=== PATIENT | male | born 1940 ===

== ENCOUNTER 2016-10-05 10:29 | Observation (INO) | payer MEDICARE, OTHER ==
[2016-10-05 10:37] VITALS: BMI 27.1
[2016-10-05 11:32] LABS: BASO # 0.1 K/uL (0.0-0.2); BASO % 0.8 % (0.0-2.0); EOS # 0.2 K/uL (0.0-0.7); HEMATOCRIT 41.8 % (35.0-51.0); LYMPH # 1.6 K/uL (1.0-4.3); LYMPH % 22.9 % (20.0-40.0); MEAN CELL VOLUME 93.3 fL (80.0-94.0); MEAN CORPUSCULAR HGB CONC 33.2 g/dL (33.0-37.0); MEAN PLATELET VOLUME 8.4 fL (7.2-11.7); MONO # 0.4 K/uL (0.0-0.8); MONO % 5.7 % (0.0-10.0); RED CELL DISTRIBUTION WIDTH 14.1 % (11.5-14.5); WHITE BLOOD COUNT 7.1 K/uL (4.8-10.8)
--- NOTE | 2016-10-05 11:33 | RAD ---
HISTORY: Shortness of breath COMPARISON: 03/03/2016 TECHNIQUE: Chest PA and lateral FINDINGS: LUNGS: There is mild pulmonary hyperinflation and peribronchial thickening. There are chronic interstitial markings in both lungs. No lobar pneumonia. PLEURA: No significant pleural effusion identified. No pneumothorax apparent. CARDIOVASCULAR: Normal. OSSEOUS STRUCTURES: No significant abnormalities. VISUALIZED UPPER ABDOMEN: Normal. OTHER FINDINGS: None. IMPRESSION: No active pulmonary disease. COPD.
[2016-10-05 11:40] LABS: CHLORIDE 101 mmol/L (98-107); POTASSIUM 4.2 mmol/L (3.6-5.2); SODIUM 138 mmol/L (132-148)
[2016-10-05 11:42] LABS: AST/SGOT 20 U/L (17-59); BILIRUBIN,TOTAL 0.5 mg/dL (0.2-1.3); CARBON DIOXIDE 26 mmol/L (22-30); GFR AFRICAN-AMERICAN > 60
[2016-10-05 11:43] LABS: ALB/GLOB RATIO 1.4 (1.0-2.1); ALKALINE PHOSPHATASE 70 U/L (38-126); ALT/SGPT 16 U/L (21-72); BLOOD UREA NITROGEN 15 mg/dL (9-20); CALCIUM 8.7 mg/dl (8.6-10.4); GLUCOSE,RANDOM 211 mg/dL (75-110); TOTAL PROTEIN 6.7 g/dL (6.3-8.3)
[2016-10-05 11:45] LABS: RBC URINE 11 /hpf (0-3); URINE BILIRUBIN NEGATIVE (NEGATIVE); URINE BLOOD 1+ (NEGATIVE); URINE COLOR Yellow (YELLOW); URINE GLUCOSE (UA) NORMAL (Normal); URINE KETONE NEGATIVE (NEGATIVE); URINE LEUKOCYTE ESTERASE NEG Leu/uL (Negative); URINE PROTEIN NEGATIVE (NEGATIVE); URINE UROBILINOGEN NORMAL mg/dL (0.2-1.0); WBC URINE < 1 /hpf (0-5)
--- NOTE | 2016-10-05 11:55 | C.PDOC ---
History Of Present Illness 76-year-old male, PMHx includes Anemia, Anxiety, Arthritis (B/L KNEE L>R), Asthma, CAD, Cardiac Aneurysm, Diabetes (NIDDM), Gastritis, Hypertension, Hyperthyroidism, Kidney Stones, and Pancreatitis, presents to the emergency department with complaints of chest pain, radiating to left arm that started three weeks ago. Patient notes associated pain in back, and legs. Patient denies shortness of breath, nausea/vomiting, fevers or chills. No other complaints at this time. Time Seen by Provider: 10/05/16 10:39 Chief Complaint (Nursing): Chest Pain History Per: Patient History/Exam Limitations: no limitations Onset/Duration Of Symptoms: Days Current Symptoms Are (Timing): Still Present Severity: Moderate Past Medical History Reviewed: Historical Data, Nursing Documentation, Vital Signs Vital Signs: Last Vital Signs Temp 98.1 F 10/05/16 10:39 Pulse 92 H 10/05/16 10:39 Resp 18 10/05/16 10:39 BP 135/81 10/05/16 10:39 Pulse Ox 97 10/05/16 13:09 - Medical History PMH: Anemia, Anxiety, Arthritis (B/L KNEE L>R), Asthma, CAD, Cardiac Aneurysm (' 'LOWER ABDOMEN''), Diabetes (NIDDM), Gastritis, HTN, Hyperthyroidism, Kidney Stones, Pancreatitis Surgical History: - [facility] Procedures BYPASS L FEM ART TO L FEMOR A WITH AUTOL VN, OPEN APPROACH (03/14/16) CATARAC PHACOEMULS/ASPIR (07/23/14) CONTINUOUS INVASIVE MECHANICAL VENTILATION <96 CONSEC HRS (10/14/14) CONTRAST AORTOGRAM (09/16/14) CONTRAST ARTERIOGRAM-LEG (09/16/14) CORONAR ARTERIOGR-2 CATH (01/04/13) ENDOVASCULAR IMPLANTATION OF OTHER GRAFT IN ABDOMINAL AORTA (10/14/14) EXCISION OF LEFT FEMORAL VEIN, OPEN APPROACH (03/14/16) HEMORRHAGE CONTROL NOS (10/14/14) INSERT ENDOTRACHEAL TUBE (10/14/14) INSERT LENS AT CATAR EXT (07/23/14) LEFT HEART CARDIAC CATH (01/04/13) LT HEART ANGIOCARDIOGRAM (01/04/13) OTHER ENDOVASCULAR PROCEDURES ON OTHER VESSELS (10/30/14) PACKED CELL TRANSFUSION (10/30/14) PROCEDURE ON VESSEL BIFURCATION (10/14/14) REMOVE HEAD/NECK DEV NEC (10/14/14) TRANSFUSE NONAUT RED BLOOD CELLS IN PERIPH VEIN, PERC (03/14/16) VASC SHUNT & BYPASS NEC (10/30/14) VENOUS CATHETERIZATION NEC (10/14/14) Family History: States: No Known Family Hx - Social History Hx Tobacco Use: No (quit one year ago. Formerly 1/2 ppd for 20 years. ) Hx Alcohol Use: No Hx Substance Use: No - Immunization History Hx Tetanus Toxoid Vaccination: Yes Hx Influenza Vaccination: Yes Hx Pneumococcal Vaccination: Yes Review Of Systems Except As Marked, All Systems Reviewed And Found Negative. Constitutional: Negative for: Fever, Chills Cardiovascular: Positive for: Chest Pain. Negative for: Palpitations Respiratory: Negative for: Shortness of Breath Gastrointestinal: Negative for: Nausea, Vomiting Musculoskeletal: Positive for: Arm Pain, Leg Pain Skin: Negative for: Rash Neurological: Negative for: Weakness, Numbness, Headache, Dizziness Physical Exam - Physical Exam Appears: Non-toxic, No Acute Distress Skin: Warm, Dry, No Rash Head: Atraumatic, Normacephalic Eye(s): bilateral: Normal Inspection, PERRL Nose: Normal Oral Mucosa: Moist Lips: Normal Appearing Neck: Normal ROM Cardiovascular: Rhythm Regular, No Murmur Respiratory: Normal Breath Sounds, No Accessory Muscle Use Gastrointestinal/Abdominal: Soft, No Tenderness Extremity: Normal ROM Neurological/Psych: Oriented x3, Normal Speech ED Course And Treatment - Laboratory Results Result Diagrams: 10/05/16 11:29 10/05/16 11:29 Lab Interpretation: No Acute Changes ECG: Interpreted By Ne ECG Rhythm: Sinus Rhythm, Nonspecific Changes ECG Interpretation: No Acute Changes Rate From EC O2 Sat by Pulse Oximetry: 97 Pulse Ox Interpretation: Normal - Radiology CXR: Interpreted by Ne CXR Interpretation: Yes: No Acute Disease Reassessment Condition: Unchanged - Physician Consult Information Physician Contacted: Bryan Hilario Outcome Of Conversation: admit Disposition Discussed With : Bryan Hilario Doctor Will See Patient In The: Hospital Counseled Patient/Family Regarding: Studies Performed, Diagnosis - Disposition Disposition: HOSPITALIZED Disposition Time: 13:10 Condition: STABLE - POA Present On Arrival: None - Clinical Impression Clinical Impression: Chest pain - Scribe Statement The provider has reviewed the documentation as recorded by the Scribglory Petersen All medical record entries made by the Baudilio were at my direction and personally dictated by me. I have reviewed the chart and agree that the record accurately reflects my personal performance of the history, physical exam, medical decision making, and the department course for this patient. I have also personally directed, reviewed, and agree with the discharge instructions and disposition. Decision To Admit - Pt Status Changed To: Hospital Disposition Of: Observation - . Bed Request Type: Telemetry Admitting Physician: Bryan Hilario Patient Diagnosis: Chest pain
--- NOTE | 2016-10-05 14:32 | CP.PCM.HP ---
<Jessica Omer - Last Filed: 10/05/16 14:41> History of Present Illness - History of Present Illness History of Present Illness: Chief complaint: "Chest pain" History of present illness: Patient is a 76 y/o male w/ past medical history of CAD, AAA s/p graft insertion, Hypertension, Diabetes Mellitus type II, PVD, and Nephrolithiasis who presents to ED with complaints of new-onset chest pain. Patient reports pain began approximately 2 weeks ago and is described as a "squeezing, pressure- like sensation" to left chest that radiates to his left arm. Patient states he experiences the pain intermittently at rest or with activity and there are no specific provoking factors. The chest pain is not currently present and last episode was two days ago. The patient reports night sweats, palpitations, and leg edema as associated symptoms. Patient states he came to the ED mainly due to back pain which has become worse this year. He states he is limited in distance he can walk/activities due to back and chronic leg pain. In addition, the patient reports right upper extremity numbness and tingling x 4 months. The patient denies any recent trauma or MVA. It is persistent in nature. He states he has difficulty activities such as shaving because of the decreased sensation. The patient reports nausea, dizziness, cough productive of white sputum, occasional shortness of breath, bloating, occasional diarrhea, and urinary frequency. The patient denies fever/chills, vomiting, loss of consciousness, headache, tinnitus, hemoptysis, rashes, abdominal pain, constipation, hematochezia, urgency, dysuria, and hematuria. PMD: see HPI Medications: Metformin 500 mg po BID Cilostazol 100 mg po daily Lyrica 75 mg po daily Atorvastatin 40 mg po daily Amlodipine 20 mg po daily Glipizide 5 mg po BID Clopidogrel 75 mg po daily Dutasteride 0.5 mg po daily Allergies: penicillins, shellfish Family History: Father of MA, Mother- DM Surgical History: Elective femoral-popliteal bypass with saphenous vein graft ( 03/14/16), external iliac-popliteal bypass, right external iliac artery thromboembolectomy, AAA graft insertion, and prostate surgery Social history: The patient lives alone in [place]. He has smoked a half pack of cigarettes/day for >30 years. He denies any history of alcohol consumption or recreational drug use. Present on Admission - Present on Admission Any Indicators Present on Admission: No History of DVT/PE: No History of Uncontrolled Diabetes: Yes Urinary Catheter: No Decubitus Ulcer Present: No Review of Systems - Constitutional Constitutional: Fatigue, Night Sweats. absent: Chills, Excessive Sweating, Fever, Headache - EENT Eyes: absent: Change in Vision Ears: absent: Ear Discharge, Tinnitus Nose/Mouth/Throat: Sore Throat - Cardiovascular Cardiovascular: Chest Pain, Dyspnea, Pain Radiating to Arm/Neck/Jaw, Leg Edema, Palpitations. absent: Diaphoresis - Respiratory Respiratory: Cough, Dyspnea, Excessive Mucous Production - Gastrointestinal Gastrointestinal: Bloating, Diarrhea, Nausea. absent: Abdominal Pain, Constipation, Hematemesis, Hematochezia, Vomiting - Genitourinary Genitourinary: Urinary Frequency. absent: Dysuria, Hematuria, Urinary Urgency - Musculoskeletal Musculoskeletal: Back Pain, Limited Range of Motion, Numbness, Radiating Pain into Limb, Tingling - Integumentary Integumentary: absent: Changing Lesions, New Lesions, Rash - Neurological Neurological: Dizziness, Numbness, Paresthesias, Radicular Pain, Tingling. absent: Headaches Past Patient History - Infectious Disease Hx of Infectious Diseases: None - Tetanus Immunizations Tetanus Immunization: Unknown - Past Medical History & Family History Past Medical History?: Yes - Past Social History Smoking Status: Light Smoker < 10 Cigarettes Daily - CARDIAC Hx Hypertension: Yes - PULMONARY Hx Asthma: Yes - NEUROLOGICAL Hx Neurological Disorder: No - HEENT Hx HEENT Problems: Yes Hx Cataracts: Yes (b/l cataract surgery) - RENAL Hx Kidney Stones: Yes - ENDOCRINE/METABOLIC Hx Hyperthyroidism: Yes - HEMATOLOGICAL/ONCOLOGICAL Hx Anemia: Yes - MUSCULOSKELETAL/RHEUMATOLOGICAL Hx Arthritis: Yes (B/L KNEE L>R) - GASTROINTESTINAL Hx Gastritis: Yes Hx Pancreatitis: Yes - GENITOURINARY/GYNECOLOGICAL Hx Genitourinary Disorders: Yes Hx Prostate Problems: Yes (BPH) - PSYCHIATRIC Hx Anxiety: Yes Hx Substance Use: No - SURGICAL HISTORY Hx Surgeries: Yes Hx Abdominal Aortic Aneurysm Repair: Yes (STENTING) Hx Cataract Extraction: Yes (bilateral) Hx Cardiac Catheterization: Yes (stents) Hx Eye Surgery: Yes Hx Herniorrhaphy: Yes Other/Comment: back sx x3 - ANESTHESIA Hx Anesthesia: Yes Hx Anesthesia Reactions: No Hx Malignant Hyperthermia: No Meds Allergies/Adverse Reactions: Allergies Allergy/AdvReac Type Severity Reaction Status Date / Time Penicillins Allergy Verified 10/05/16 10:59 Physical Exam - Constitutional Appears: Non-toxic, No Acute Distress, Agitated - Head Exam Head Exam: ATRAUMATIC, NORMOCEPHALIC - Eye Exam Eye Exam: EOMI, Normal appearance, PERRL - ENT Exam ENT Exam: Mucous Membranes Dry - Neck Exam Neck exam: Positive for: Full Rom, Normal Inspection - Respiratory Exam Respiratory Exam: Chest Wall Tenderness, Wheezes, NORMAL BREATHING PATTERN Additional comments: expiratory wheezing on auscultation - Cardiovascular Exam Cardiovascular Exam: RRR, +S1, +S2. absent: Tachycardia, Diastolic murmur, Gallop, Rubs, Systolic Murmur Additional comments: no carotid bruit - GI/Abdominal Exam GI & Abdominal Exam: Normal Bowel Sounds, Soft. absent: Distended, Firm, Tenderness - Extremities Exam Extremities exam: Positive for: pedal pulses present (Diminished right pedal pulses). Negative for: pedal edema, tenderness Additional comments: surgical scars present to bilateral LE no pain to palpation pedal pulse slightly diminished on right - Back Exam Back exam: paraspinal tenderness, tenderness, vertebral tenderness Additional comments: thoracolumbar tenderness to palpation pain elicited on straight leg test - Neurological Exam Neurological exam: Alert, CN II-XII Intact, Oriented x3 - Psychiatric Exam Psychiatric exam: Agitated - Skin Skin Exam: Dry, Intact, Warm Results - Vital Signs Recent Vital Signs: Last Vital Signs Temp 98.1 F 10/05/16 10:39 Pulse 92 H 10/05/16 10:39 Resp 18 10/05/16 10:39 BP 135/81 10/05/16 10:39 Pulse Ox 97 10/05/16 13:39 - Labs Result Diagrams: 10/05/16 11:29 10/05/16 11:29 Assessment & Plan - Assessment and Plan (Free Text) Assessment: 1. Chest Pain Troponin I <0.0120 EKG: CXR: There is mild pulmonary hyperinflation and peribronchial thickening. There are chronic interstitial markings in both lungs. No lobar pneumonia. ( see full report) f/u ROMIs, serial EKGs Echocardiogram (10/30/14): Ischemic cardiomyopathy and LVEF 30% (see full report) . Consult cardiology, Dr. Rodriguez, help appreciated. Echocardiogram ordered. Lipid panel, TSH, free T4 Admitting to telemetry floor 2. History of CAD AAA s/p stent graft insertion Continue home medications: Clopidigrel 75 mg po daily Atorvastatin 40 mg po daily NF - substitute Crestor Cardiology consulted as above 3. History of PVD Continue home medication: Cilostazol 100 mg po daily 4. Hypertension Normotensive Continue home medications: Amlodipine 10 mg po daily 5. Diabetes Mellitus type II Glucose 211 Accuchecks Hold home medications Metformin and Glipizide RISS f/u hemoglobin a1c Monitor 6. Right Upper Extremity Numbness/Tingling Continue home medication Lyrica 75 mg po BID 7. Thoracolumbar Back Pain Lidoderm Patch TD daily Tylenol 650 mg po q6h prn pain 8. BPH Continue home medication Dutasteride 0.5 mg po BID 9. Prophylaxis Heparin 5000 units SC Q12 Protonix 20 mg po daily SCDs Heart Healthy Diet PT/OT - Date & Time Date: 10/05/16 Time: 15:24 <Bryan Hilario - Last Filed: 10/05/16 16:52> Results - Vital Signs Recent Vital Signs: Last Vital Signs Temp 97.9 F 10/05/16 15:38 Pulse 78 10/05/16 15:38 Resp 20 10/05/16 15:38 BP 162/87 H 10/05/16 15:38 Pulse Ox 96 10/05/16 15:38 - Labs Result Diagrams: 10/05/16 11:29 10/05/16 11:29 Labs: Laboratory Results - last 24 hr 10/05/16 15:35 POC Glucose (mg/dL) 146 H Attending/Attestation - Attestation I have personally seen and examined this patient.: Yes I have fully participated in the care of the patient.: Yes I have reviewed all pertinent clinical information: Yes Notes (Text): 10/05/16 16:51 Patient was seen and examined at bedside with the resident We will admit the patient to rule out acute coronary syndrome We will also request a cardiology evaluation and will follow-up recommendations I discussed the plan of care with the resident and I agree with the above history and physical and assessment/plan by the resident.
[2016-10-05 15:39] VITALS: RESP 20
[2016-10-05] MEDS: (Novolog) Insulin Aspart, Recombinant 100 u/ml 10 ml vial SC SCH (17:45)
[2016-10-06 06:16] LABS: BASO % 0.4 % (0.0-2.0); EOS # 0.2 K/uL (0.0-0.7); EOS % 2.8 % (0.0-4.0); HEMATOCRIT 43.2 % (35.0-51.0); LYMPH # 1.7 K/uL (1.0-4.3); LYMPH % 24.6 % (20.0-40.0); MEAN CORPUSCULAR HEMOGLOBIN 31.2 pg (27.0-31.0); MEAN CORPUSCULAR HGB CONC 33.5 g/dL (33.0-37.0); MEAN PLATELET VOLUME 8.2 fL (7.2-11.7); MONO # 0.4 K/uL (0.0-0.8); MONO % 5.3 % (0.0-10.0); NRBC % 0.1 % (0.0-2.0); RED CELL DISTRIBUTION WIDTH 14.2 % (11.5-14.5); WHITE BLOOD COUNT 6.9 K/uL (4.8-10.8)
[2016-10-06 06:21] LABS: CHLORIDE 103 mmol/L (98-107)
[2016-10-06 06:22] LABS: POTASSIUM 4.3 mmol/L (3.6-5.2); SODIUM 137 mmol/L (132-148)
[2016-10-06 06:24] LABS: ALB/GLOB RATIO 1.3 (1.0-2.1); AST/SGOT 20 U/L (17-59); BILIRUBIN,TOTAL 0.6 mg/dL (0.2-1.3); CARBON DIOXIDE 26 mmol/L (22-30); CHOLESTEROL 176 mg/dL (0-199); GFR AFRICAN-AMERICAN > 60; TOTAL PROTEIN 6.5 g/dL (6.3-8.3)
[2016-10-06 06:25] LABS: ALKALINE PHOSPHATASE 69 U/L (38-126); ALT/SGPT 18 U/L (21-72); BLOOD UREA NITROGEN 14 mg/dL (9-20); CALCIUM 9.1 mg/dl (8.6-10.4); GLUCOSE,RANDOM 153 mg/dL (75-110); MAGNESIUM 1.7 mg/dL (1.6-2.3)
[2016-10-06 06:53] LABS: THYROID STIMULATING HORMONE 0.35 mIU/L (0.46-4.68)
--- NOTE | 2016-10-06 06:56 | CP.PCM.PN ---
<OrlinMohitricardo - Last Filed: 10/06/16 11:38> Subjective - Date & Time of Evaluation Date of Evaluation: 10/06/16 Time of Evaluation: 07:12 - Subjective Subjective: PGY 1 Medicine Note- Dr. Hilario's service Pt seen and examined in no acute distress. Patient states that he does not have any chest pain at the moment. He states that his real reason for coming in was due to the lower back pain as well as right sided shoulder pain that he has been experiencing. Patient's pain is exacerbated with movement of his arm and palpation of affected areas. Patient admits to paresthesias in his right UE only. Patient denies chest pain, palpitations, dyspnea on exertion, nausea, vomiting, diarrhea , constipation at this time. Objective - Vital Signs/Intake and Output Vital Signs (last 24 hours): Temp Pulse Resp BP Pulse Ox 98.3 F 70 20 145/64 97 10/05/16 23:10 10/06/16 00:34 10/05/16 23:10 10/05/16 23:10 10/05/16 23:10 Intake and Output: 10/05/16 10/06/16 18:59 06:59 Intake Total 300 Output Total 300 Balance 0 - Medications Medications: Current Medications Acetaminophen (Tylenol 325mg Tab) 650 mg PO Q6 PRN PRN Reason: Pain, moderate (4-7) Last Admin: 10/05/16 22:03 Dose: 650 mg Amlodipine Besylate (Norvasc) 10 mg PO DAILY [facility] Cilostazol (Pletal) 100 mg PO DAILY [facility] Clopidogrel Bisulfate (Plavix) 75 mg PO DAILY [facility] Finasteride (Proscar) 5 mg PO DAILY [facility] Heparin Sodium (Porcine) (Heparin) 5,000 units SC Q12 [facility] Last Admin: 10/05/16 22:04 Dose: 5,000 units Insulin Aspart (Novolog) 0 unit SC TIDAC [facility] PRN Reason: Protocol Last Admin: 10/05/16 17:45 Dose: Not Given Lidocaine (Lidoderm) 1 ea TD DAILY [facility] Pantoprazole Sodium (Protonix Ec Tab) 20 mg PO DAILY [facility] Pregabalin (Lyrica) 75 mg PO BID [facility] Last Admin: 10/05/16 22:03 Dose: 75 mg - Labs Labs: 10/06/16 06:02 10/06/16 06:02 - Constitutional Appears: Non-toxic, No Acute Distress - Head Exam Head Exam: ATRAUMATIC, NORMAL INSPECTION, NORMOCEPHALIC - Eye Exam Eye Exam: EOMI, Normal appearance, PERRL Pupil Exam: NORMAL ACCOMODATION - ENT Exam ENT Exam: Mucous Membranes Moist - Neck Exam Neck Exam: Full ROM - Respiratory Exam Respiratory Exam: NORMAL BREATHING PATTERN. absent: Wheezes - Cardiovascular Exam Cardiovascular Exam: +S1, +S2. absent: Tachycardia - GI/Abdominal Exam GI & Abdominal Exam: Soft, Normal Bowel Sounds - Extremities Exam Extremities Exam: Normal Capillary Refill. absent: Full ROM (limited RUE ROM) - Back Exam Back Exam: paraspinal tenderness, tenderness, vertebral tenderness Additional comments: midline surgical scar noted lumbosacral region - Neurological Exam Neurological Exam: Alert, Awake, CN II-XII Intact, Oriented x3 - Psychiatric Exam Psychiatric exam: Normal Affect, Normal Mood - Skin Skin Exam: Dry, Warm Additional comments: skin tags on back Assessment and Plan - Assessment and Plan (Free Text) Assessment: Chest Pain Troponin x 3 negative EKG: NSR, Left axis deviation noted, low voltage in some leads. CXR: There is mild pulmonary hyperinflation and peribronchial thickening. There are chronic interstitial markings in both lungs. No lobar pneumonia. ( see full report) Echocardiogram (10/30/14): Ischemic cardiomyopathy and LVEF 30% (see full report) . Echocardiogram ordered. Lipid panel: Triglycerides elevated though could be secondarily due to diet intake. Cholesterol and LDL WNL HDL 28, TSH 0.35, free T4 F/U Cardiology Dr. Rodriguez on board: Stress test 10/07. F/U recommendations History of CAD AAA s/p stent graft insertion Continue home medications: Clopidigrel 75 mg po daily Atorvastatin 40 mg po daily NF - substitute Crestor Cardiology consulted as above History of PVD Continue home medication: Cilostazol 100 mg po daily Abnormal Thyroid readings Free T4 0.77 (borderline low) TSH 0.35 Hypertension Normotensive Continue home medications: Amlodipine 10 mg po daily Diabetes Mellitus type II Glucose 211 Accuchecks Hold home medications Metformin and Glipizide RISS f/u hemoglobin a1c Monitor Right Upper Extremity Numbness/Tingling Continue home medication Lyrica 75 mg po BID Thoracolumbar Back Pain Lidoderm Patch TD daily Tylenol 650 mg po q6h prn pain F/U XRAYS of Thoracic and cervical spine BPH Continue home medication Dutasteride 0.5 mg po BID Prophylaxis Heparin 5000 units SC Q12 Protonix 20 mg po daily SCDs Heart Healthy Diet PT/OT <YanelisBryan M - Last Filed: 10/06/16 15:20> Objective - Vital Signs/Intake and Output Vital Signs (last 24 hours): Temp Pulse Resp BP Pulse Ox 97.8 F 71 20 138/81 97 10/06/16 07:17 10/06/16 12:00 10/06/16 07:17 10/06/16 07:17 10/06/16 07:17 Intake and Output: 10/06/16 10/06/16 06:59 18:59 Intake Total 420 Output Total 625 Balance -205 - Medications Medications: Current Medications Acetaminophen (Tylenol 325mg Tab) 650 mg PO Q6 PRN PRN Reason: Pain, moderate (4-7) Last Admin: 10/05/16 22:03 Dose: 650 mg Amlodipine Besylate (Norvasc) 10 mg PO DAILY [facility] Last Admin: 10/06/16 10:58 Dose: 10 mg Cilostazol (Pletal) 100 mg PO DAILY [facility] Last Admin: 10/06/16 10:59 Dose: 100 mg Clopidogrel Bisulfate (Plavix) 75 mg PO DAILY [facility] Last Admin: 10/06/16 10:58 Dose: 75 mg Finasteride (Proscar) 5 mg PO DAILY [facility] Last Admin: 10/06/16 10:58 Dose: 5 mg Heparin Sodium (Porcine) (Heparin) 5,000 units SC Q12 [facility] Last Admin: 10/06/16 10:59 Dose: 5,000 units Insulin Aspart (Novolog) 0 unit SC TIDAC [facility] PRN Reason: Protocol Last Admin: 10/06/16 13:31 Dose: 2 unit Lidocaine (Lidoderm) 1 ea TD DAILY [facility] Last Admin: 10/06/16 10:59 Dose: 1 ea Pantoprazole Sodium (Protonix Ec Tab) 20 mg PO DAILY [facility] Last Admin: 10/06/16 10:58 Dose: 20 mg Pregabalin (Lyrica) 75 mg PO BID [facility] Last Admin: 10/06/16 10:58 Dose: 75 mg - Labs Labs: 10/06/16 06:02 06/08/17 06:02 Attending/Attestation - Attestation I have personally seen and examined this patient.: Yes I have fully participated in the care of the patient.: Yes I have reviewed all pertinent clinical information, including history, physical exam and plan: Yes Notes (Text): 10/06/16 15:18 Patient was seen and examined at bedside with the resident Denies any chest pain. Cardiology evaluation seen in appreciated. Plan for stress tests in the morning Patient also complains of for back and right shoulder pain. Patient has previous back surgery. We will obtain x-rays of the cervical and lumbar spine. Follow-up results I discussed the plan of care with the resident and agree with the above history and physical and assessment/plan but the resident.
[2016-10-06] MEDS: (Novolog) Insulin Aspart, Recombinant 100 u/ml 10 ml vial SC SCH ×3 (08:25→17:36)
[2016-10-06] MEDS ORDERED: Tramadol 25 mg PO ONE (10:30)
[2016-10-06] MEDS: Pantoprazole 20 mg EC Tab PO SCH (10:58)
[2016-10-06] MEDS: Lidocaine 5% Patch TD SCH (10:59)
[2016-10-06] MEDS: Cilostazol 100 mg Tab UD PO SCH (10:59)
--- NOTE | 2016-10-06 11:52 | CARD ---
APPROVED REPORT EXAM: Two-dimensional and M-mode echocardiogram with Doppler and color Doppler. Other Information Quality : GoodRhythm : NSR INDICATION CAD Chest Pain Congestive Heart Failure RISK FACTORS Hypertension Hyperlipidemia M-Mode DIMENSIONS RVDd1.40 (2.1-3.2cm)Left Atrium (MM)3.21 (2.5-4.0cm) IVSd1.07 (0.7-1.1cm)Aortic Root3.58 (2.2-3.7cm) LVDd5.38 (4.0-5.6cm)Aortic Cusp Exc.2.10 (1.5-2.0cm) PWd1.29 (0.7-1.1cm)FS (%) 23 % LVDs4.13 (2.0-3.8cm)LVEF (%)46 (>50%) Aortic Valve AoV Peak Mnksuuli45.3cm/Philip Peak GR.3mmHg Mitral Valve MV E Vlrznpuk54.6cm/sMV A Qixhbabj89.0cm/sE/A ratio0.7 TDI E/Lateral E'0.0E/Medial E'0.0 Tricuspid Valve TR Peak Vrrtznnc262ai/sTR Peak Gr.[id number] LEFT VENTRICLE The Left Ventricle is borderline dilated. There is mild concentric left ventricular hypertrophy. The systolic function is mildly to moderately impaired. There is global hypokinesis of the left ventricle. Tissue Doppler imaging reveals moderate left ventricular diastolic dysfunction. Transmitral Doppler flow pattern is Grade I-abnormal relaxation pattern. No left ventricle thrombus noted on this study. There is no ventricular septal defect visualized. There is no left ventricular aneurysm. There is no mass noted in the left ventricle. RIGHT VENTRICLE The right ventricle is normal size. There is normal right ventricular wall thickness. The right ventricular systolic function is normal. ATRIA The left atrium size is normal. The right atrium size is normal. The interatrial septum is intact with no evidence for an atrial septal defect. AORTIC VALVE The aortic valve is normal in structure. No aortic regurgitation is present. There is no aortic valvular stenosis. There is no aortic valvular vegetation. MITRAL VALVE The mitral valve is normal in structure. There is no mitral valve stenosis. There is no mitral valve regurgitation noted. TRICUSPID VALVE The tricuspid valve is normal in structure. There is trace tricuspid regurgitation. PULMONIC VALVE The pulmonary valve is normal in structure. There is trace pulmonic valvular regurgitation. GREAT VESSELS The aortic root is normal in size. The ascending aorta is normal in size. The pulmonary artery is normal. PERICARDIAL EFFUSION There is no pericardial effusion. <Conclusion> The Left Ventricle is borderline dilated. There is mild concentric left ventricular hypertrophy. The systolic function is mildly to moderately impaired. There is global hypokinesis of the left ventricle. Tissue Doppler imaging reveals moderate left ventricular diastolic dysfunction. Transmitral Doppler flow pattern is Grade I-abnormal relaxation pattern. LVEF IS ABOUT 40%.
--- NOTE | 2016-10-06 12:24 | CP.PCM.CON ---
History of Present Illness - History of Present Illness History of Present Illness: Consult Note for Dr. Rodriguez Reason for consult: EF 30% on old echo, chest pain 76 y/o male with PMH of CAD, AAA s/p repair, HTN, DM2, PVD with multiple bypasses, and nephrolithiasis came to the ED c/o left-sided, pressure- like chest pain radiating to the left shoulder and left upper arm. Patient states he had three episodes of this chest pain in the last month, most recently 3 days ago. Pt currently does not have any chest pain. Pt also denies any alleviating or exacerbating factors and recent trauma or repetitive movement. Pt reports having a sedentary lifestyle but can walk "many blocks" without experiencing SOB or CP. Pt denies any associated symptoms such as SOB, palpitations, diaphoresis, leg swelling, orthopnea, nausea, and vomiting. Pt states he also has chronic back and lower extremity joint pain but ambulates without assistance. Pt also denies cough, fever, chills, dizziness, [place], Abd pain , constipation, and symptoms. ECHO (10/30/14): Ischemic Cardiomyopathy, EF = 29%, basal-inferoseptal akynesia, basal-inferior wall dyskinesia EKG (10/05/16): NSR, regular rate, Left [place] deviation, LVH, non-specific T wave abnormality CK-MB and Troponin normal x3 PMH: CAD, AAA (s/p repair 2016), HTN, DM2, PVD (with multiple bypasses), and nephrolithiasis PSH: AAA repair (2017) hernia, back surgery, femoral-popliteal bypass with saphenous vein graft (2016), external iliac-popliteal bypass, right external iliac artery thromboembolectomy, AAA graft insertion, prostate surgery Medication: Metformin 500 mg po BID; Cilostazol 100mg po Daily; Lyrica 75mg po dialy; Amlodipine 20mg po dialy; Glipizide 5mg po BID; Clopidogrel 75mg po daily ; Dutasteride 0.5mg po daily Allergies: penicillin (itching); shellfish Family Hx: Mother - DM Social: Smokes 3-5 cigarettes/day; denies ETOH and recreational drugs use; lives at home; retired Review of Systems - Constitutional Constitutional: Fatigue, Weakness. absent: Fever - Cardiovascular Cardiovascular: Chest Pain, Irregular Heart Rhythm - Respiratory Respiratory: Cough, Dyspnea - Gastrointestinal Gastrointestinal: Constipation. absent: Vomiting - Genitourinary Genitourinary: Dysuria - Musculoskeletal Musculoskeletal: Arthralgias, Muscle Weakness - Integumentary Integumentary: absent: New Lesions, Rash - Neurological Neurological: absent: Dizziness, Syncope Past Patient History - Infectious Disease Hx of Infectious Diseases: None - Tetanus Immunizations Tetanus Immunization: Unknown - Past Medical History & Family History Past Medical History?: Yes - Past Social History Smoking Status: Light Smoker < 10 Cigarettes Daily - CARDIAC Hx Hypertension: Yes - PULMONARY Hx Asthma: Yes - NEUROLOGICAL Hx Neurological Disorder: No - HEENT Hx HEENT Problems: Yes Hx Cataracts: Yes (b/l cataract surgery) - RENAL Hx Kidney Stones: Yes - ENDOCRINE/METABOLIC Hx Hyperthyroidism: Yes - HEMATOLOGICAL/ONCOLOGICAL Hx Anemia: Yes - MUSCULOSKELETAL/RHEUMATOLOGICAL Hx Arthritis: Yes (B/L KNEE L>R) - GASTROINTESTINAL Hx Gastritis: Yes Hx Pancreatitis: Yes - GENITOURINARY/GYNECOLOGICAL Hx Genitourinary Disorders: Yes Hx Prostate Problems: Yes (BPH) - PSYCHIATRIC Hx Anxiety: Yes Hx Substance Use: No - SURGICAL HISTORY Hx Surgeries: Yes Hx Abdominal Aortic Aneurysm Repair: Yes (STENTING) Hx Cataract Extraction: Yes (bilateral) Hx Cardiac Catheterization: Yes (stents) Hx Eye Surgery: Yes Hx Herniorrhaphy: Yes Other/Comment: back sx x3 - ANESTHESIA Hx Anesthesia: Yes Hx Anesthesia Reactions: No Hx Malignant Hyperthermia: No Meds Allergies/Adverse Reactions: Allergies Allergy/AdvReac Type Severity Reaction Status Date / Time Penicillins Allergy Verified 10/05/16 10:59 - Medications Medications: Current Medications Acetaminophen (Tylenol 325mg Tab) 650 mg PO Q6 PRN PRN Reason: Pain, moderate (4-7) Last Admin: 10/05/16 22:03 Dose: 650 mg Amlodipine Besylate (Norvasc) 10 mg PO DAILY REPLACED BY [facility] Last Admin: 10/06/16 10:58 Dose: 10 mg Cilostazol (Pletal) 100 mg PO DAILY REPLACED BY [facility] Last Admin: 10/06/16 10:59 Dose: 100 mg Clopidogrel Bisulfate (Plavix) 75 mg PO DAILY REPLACED BY [facility] Last Admin: 10/06/16 10:58 Dose: 75 mg Finasteride (Proscar) 5 mg PO DAILY REPLACED BY [facility] Last Admin: 10/06/16 10:58 Dose: 5 mg Heparin Sodium (Porcine) (Heparin) 5,000 units SC Q12 REPLACED BY [facility] Last Admin: 10/06/16 10:59 Dose: 5,000 units Insulin Aspart (Novolog) 0 unit SC TIDAC REPLACED BY [facility] PRN Reason: Protocol Last Admin: 10/06/16 08:25 Dose: Not Given Lidocaine (Lidoderm) 1 ea TD DAILY REPLACED BY [facility] Last Admin: 10/06/16 10:59 Dose: 1 ea Pantoprazole Sodium (Protonix Ec Tab) 20 mg PO DAILY REPLACED BY [facility] Last Admin: 10/06/16 10:58 Dose: 20 mg Pregabalin (Lyrica) 75 mg PO BID REPLACED BY [facility] Last Admin: 10/06/16 10:58 Dose: 75 mg Physical Exam - Constitutional Appears: Well, No Acute Distress - Head Exam Head Exam: ATRAUMATIC, NORMAL INSPECTION, NORMOCEPHALIC - Respiratory Exam Respiratory Exam: Clear to Auscultation Bilateral, NORMAL BREATHING PATTERN. absent: Rhonchi, Wheezes - Cardiovascular Exam Cardiovascular Exam: RRR, +S1, +S2 - GI/Abdominal Exam GI & Abdominal Exam: Normal Bowel Sounds, Soft. absent: Tenderness - Extremities Exam Extremities exam: Positive for: normal inspection. Negative for: calf tenderness, pedal edema - Neurological Exam Neurological exam: Alert, Oriented x3 - Skin Skin Exam: Intact, Normal Color, Warm Results - Vital Signs Recent Vital Signs: Last Vital Signs Temp 97.8 F 10/06/16 07:17 Pulse 66 10/06/16 07:17 Resp 20 10/06/16 07:17 BP 138/81 10/06/16 07:17 Pulse Ox 97 10/06/16 07:17 - Labs Result Diagrams: 10/06/16 06:02 10/06/16 06:02 Labs: Laboratory Results - last 24 hr 10/05/16 10/05/16 10/05/16 15:35 16:46 18:30 WBC RBC Hgb Hct MCV MCH MCHC RDW Plt Count MPV Neut % (Auto) Lymph % (Auto) [place] % (Auto) Eos % (Auto) Baso % (Auto) Neut # Lymph # [place] # Eos # Baso # Sodium Potassium Chloride Carbon Dioxide Anion Gap BUN Creatinine Est GFR ( Amer) Est GFR (Non-Af Amer) POC Glucose (mg/dL) 146 H 166 H Random Glucose Hemoglobin A1c Calcium Magnesium Total Bilirubin AST ALT Alkaline Phosphatase Total Creatine Kinase 65 CK-MB (Mass) 0.84 Troponin I, Quant 0.0140 Total Protein Albumin Globulin Albumin/Globulin Ratio Triglycerides Cholesterol LDL Cholesterol Direct HDL Cholesterol Free T4 TSH 3rd Generation 10/05/16 10/06/16 10/06/16 19:50 00:32 06:02 WBC 6.9 RBC 4.64 Hgb 14.5 Hct 43.2 MCV 93.0 MCH 31.2 H MCHC 33.5 RDW 14.2 Plt Count 190 MPV 8.2 Neut % (Auto) 66.9 Lymph % (Auto) 24.6 [place] % (Auto) 5.3 Eos % (Auto) 2.8 Baso % (Auto) 0.4 Neut # 4.6 Lymph # 1.7 [place] # 0.4 Eos # 0.2 Baso # 0.0 Sodium Potassium Chloride Carbon Dioxide Anion Gap BUN Creatinine Est GFR ( Amer) Est GFR (Non-Af Amer) POC Glucose (mg/dL) Random Glucose Hemoglobin A1c Calcium Magnesium Total Bilirubin AST ALT Alkaline Phosphatase Total Creatine Kinase 58 63 CK-MB (Mass) 0.75 0.93 Troponin I, Quant 0.0180 0.0290 Total Protein Albumin Globulin Albumin/Globulin Ratio Triglycerides Cholesterol LDL Cholesterol Direct HDL Cholesterol Free T4 TSH 3rd Generation 10/06/16 10/06/16 10/06/16 06:02 06:02 06:08 WBC RBC Hgb Hct MCV MCH MCHC RDW Plt Count MPV Neut % (Auto) Lymph % (Auto) [place] % (Auto) Eos % (Auto) Baso % (Auto) Neut # Lymph # [place] # Eos # Baso # Sodium 137 Potassium 4.3 Chloride 103 Carbon Dioxide 26 Anion Gap 13 BUN 14 Creatinine 0.6 L Est GFR ( Amer) > 60 Est GFR (Non-Af Amer) > 60 POC Glucose (mg/dL) 143 H Random Glucose 153 H Hemoglobin A1c 6.8 H Calcium 9.1 Magnesium 1.7 Total Bilirubin 0.6 AST 20 ALT 18 L Alkaline Phosphatase 69 Total Creatine Kinase CK-MB (Mass) Troponin I, Quant Total Protein 6.5 Albumin 3.7 Globulin 2.9 Albumin/Globulin Ratio 1.3 Triglycerides 162 H Cholesterol 176 LDL Cholesterol Direct 119 HDL Cholesterol 28 L Free T4 TSH 3rd Generation 0.35 L 10/06/16 10/06/16 07:07 11:24 WBC RBC Hgb Hct MCV MCH MCHC RDW Plt Count MPV Neut % (Auto) Lymph % (Auto) [place] % (Auto) Eos % (Auto) Baso % (Auto) Neut # Lymph # [place] # Eos # Baso # Sodium Potassium Chloride Carbon Dioxide Anion Gap BUN Creatinine Est GFR ( Amer) Est GFR (Non-Af Amer) POC Glucose (mg/dL) 160 H Random Glucose Hemoglobin A1c Calcium Magnesium Total Bilirubin AST ALT Alkaline Phosphatase Total Creatine Kinase CK-MB (Mass) Troponin I, Quant Total Protein Albumin Globulin Albumin/Globulin Ratio Triglycerides Cholesterol LDL Cholesterol Direct HDL Cholesterol Free T4 0.77 L TSH 3rd Generation Assessment & Plan (1) Chest pain Assessment and Plan: Troponins negative x3 EKG shows NSR Echocardiogram 40% EF, mild LVH Exercise stress test ordered Continue current medical management Status: Acute
--- NOTE | 2016-10-06 14:02 | CARD ---
APPROVED REPORT EKG Measurement Heart [id number] [id number] <Conclusion> Normal sinus rhythm Left axis deviation Minimal voltage criteria for LVH, may be normal variant Nonspecific T wave abnormality Abnormal ECG
[2016-10-07] MEDS: (Novolog) Insulin Aspart, Recombinant 100 u/ml 10 ml vial SC SCH ×2 (07:44→12:52)
--- NOTE | 2016-10-07 09:30 | CP.PCM.PN ---
Subjective - Date & Time of Evaluation Date of Evaluation: 10/07/16 Time of Evaluation: 09:24 - Subjective Subjective: Progress Note for Dr. Rodriguez Pt seen and examined at bedside. Pt doing well overnight with no acute events. Pt with no current complaints. Pt scheduled for stress test this morning. Denies CP, SOB, N/V/D. Objective - Vital Signs/Intake and Output Vital Signs (last 24 hours): Temp Pulse Resp BP Pulse Ox 97.8 F 72 20 156/84 H 95 10/07/16 07:07 10/07/16 07:07 10/07/16 07:07 10/07/16 07:07 10/07/16 07:07 Intake and Output: 10/07/16 10/07/16 06:59 18:59 Output Total 200 Balance -200 - Medications Medications: Current Medications Acetaminophen (Tylenol 325mg Tab) 650 mg PO Q6 PRN PRN Reason: Pain, moderate (4-7) Last Admin: 10/05/16 22:03 Dose: 650 mg Amlodipine Besylate (Norvasc) 10 mg PO DAILY [facility] Last Admin: 10/06/16 10:58 Dose: 10 mg Cilostazol (Pletal) 100 mg PO DAILY [facility] Last Admin: 10/06/16 10:59 Dose: 100 mg Clopidogrel Bisulfate (Plavix) 75 mg PO DAILY [facility] Last Admin: 10/06/16 10:58 Dose: 75 mg Finasteride (Proscar) 5 mg PO DAILY [facility] Last Admin: 10/06/16 10:58 Dose: 5 mg Heparin Sodium (Porcine) (Heparin) 5,000 units SC Q12 [facility] Last Admin: 10/06/16 21:29 Dose: 5,000 units Insulin Aspart (Novolog) 0 unit SC TIDAC [facility] PRN Reason: Protocol Last Admin: 10/07/16 07:44 Dose: Not Given Lidocaine (Lidoderm) 1 ea TD DAILY [facility] Last Admin: 10/06/16 10:59 Dose: 1 ea Pantoprazole Sodium (Protonix Ec Tab) 20 mg PO DAILY [facility] Last Admin: 10/06/16 10:58 Dose: 20 mg Pregabalin (Lyrica) 75 mg PO BID [facility] Last Admin: 10/06/16 17:35 Dose: 75 mg - Labs Labs: 10/06/16 06:02 10/06/16 06:02 - Constitutional Appears: Well, No Acute Distress - Head Exam Head Exam: ATRAUMATIC - Respiratory Exam Respiratory Exam: Clear to Ausculation Bilateral, NORMAL BREATHING PATTERN. absent: Rhonchi - Cardiovascular Exam Cardiovascular Exam: RRR, +S1, +S2 - GI/Abdominal Exam GI & Abdominal Exam: Soft, Normal Bowel Sounds. absent: Tenderness - Extremities Exam Extremities Exam: Normal Inspection. absent: Pedal Edema - Neurological Exam Neurological Exam: Alert, Awake, Oriented x3 - Skin Skin Exam: Intact, Normal Color, Warm Assessment and Plan (1) Chest pain Assessment & Plan: Troponins negative x3 EKG: NSR Exercise Strest test today normal Pt to follow up with Dr. Rodriguez in office in 1 month Status: Acute
--- NOTE | 2016-10-07 11:00 | RAD ---
PROCEDURE: Lumbar spine dated 10/07/2016. HISTORY: Back pain, rule out spondylolisthesis COMPARISON: No prior. FINDINGS: BONES: Current study re- demonstrates multilevel bilateral laminectomy along the inferior L2-L3 disc space margin, L3-L4, and left-sided laminectomy L4-L5 and L5-S1 levels. Bilateral long segment Garcia rods attached to the L3, L4, L5 and S1 segments unchanged. . Large bilateral bony fusion masses. Evaluation somewhat limited due to postsurgical changes as well as posterior fixation hardware and overlying endovascular stent graft within the abdominal aorta and proximal iliac arteries. No acute fractures nor retropulsed fragments DISC SPACES: Multilevel degenerative spondylosis . Degrees of disc space narrowing, endplate eburnation with anterolateral and posterior osteophyte formation. Facets also appear hypertrophic throughout. There is a dextroscoliosis centered at the L2-L3 level. OTHER FINDINGS: None. IMPRESSION: No definitive fracture nor retropulsed fragments. . Multilevel bilateral laminectomy along the inferior L2-L3 disc space margin, L3-L4, and left-sided laminectomy L4-L5 and L5-S1 levels. Bilateral long segment Garcia rods attached to the L3, L4, L5 and S1 segments unchanged. . Large bilateral bony fusion masses. Evaluation somewhat limited due to postsurgical changes as well as posterior fixation hardware and overlying endovascular stent graft within the abdominal aorta and proximal iliac arteries. Multilevel degenerative spondylosis.
--- NOTE | 2016-10-07 11:02 | RAD ---
HISTORY: BACK PAIN COMPARISON: No prior. FINDINGS: BONES: No acute compression fractures nor retropulsed fragments. Vertebral bodies exhibit relatively normal stature. There is mild levoscoliosis centered at the thoracolumbar junction however vertebral bodies otherwise exhibit normal alignment. Facets normally aligned. DISC SPACES: Multilevel degenerative spondylosis. Changes include varying degrees disc space narrowing endplate eburnation and anterolateral as well as small posterior osteophyte formation. SOFT TISSUES: Grossly unremarkable OTHER FINDINGS: Endovascular stent graft within the abdominal aorta again IMPRESSION: No acute fractures. Multilevel degenerative spondylosis as above. Mild levoscoliosis centered at the thoracolumbar junction.
--- NOTE | 2016-10-07 11:08 | RAD ---
PROCEDURE: Cervical spine 10/07/2016 Multiple views of the cervical spine performed. The odontoid is partially obscured by overlying occiput in the open-mouth projection no partially visualized and extended felipe view. HISTORY: Pain. COMPARISON: None. FINDINGS: BONES: No definitive radiographic evidence of acute compression fractures nor retropulsed fragments. Vertebral bodies exhibit relatively normal stature. There is slight anterior subluxation of C4 over C5. Vertebral bodies otherwise normally aligned. . DISC SPACES: Multilevel degenerative spondylosis. Changes include varying degrees of disc space narrowing with endplate eburnation and anterolateral as well as small posterior osteophyte formation. The uncovertebral facets are also mildly hypertrophic throughout. SOFT TISSUES: Normal. No prevertebral soft tissue swelling. . Note is made of bilateral soft tissue calcifications most likely representing carotid artery calcification. Carotid Doppler recommended. OTHER FINDINGS: None. IMPRESSION: Somewhat limited study demonstrating no acute fractures. Multilevel degenerative spondylosis. Presumed carotid artery calcifications. Carotid Doppler ultrasound recommended.
--- NOTE | 2016-10-07 12:17 | CARD ---
APPROVED REPORT EKG Measurement Heart [id number] MA 160P16 [id number] <Conclusion> Normal sinus rhythm Left axis deviation Moderate voltage criteria for LVH, may be normal variant Nonspecific T wave abnormality Abnormal ECG
--- NOTE | 2016-10-07 12:18 | CARD ---
APPROVED REPORT EKG Measurement Heart [id number] [place] 152P40 [id number] <Conclusion> Normal sinus rhythm Left axis deviation Left ventricular hypertrophy with repolarization abnormality Abnormal ECG
[2016-10-07 12:25] VITALS: BP 158/77; TEMP 97.6; O2SAT 96
[2016-10-07] MEDS: Pantoprazole 20 mg EC Tab PO SCH (12:34)
[2016-10-07] MEDS: Cilostazol 100 mg Tab UD PO SCH (12:35)
[2016-10-07] MEDS: Lidocaine 5% Patch TD SCH (12:36)
--- NOTE | 2016-10-07 14:46 | CP.PCM.DIS ---
Provider - Provider Date of Admission: 10/05/16 13:08 Attending physician: Bryan Hilario MD Consults: Dr. Rodriguez (Cardiology) Time Spent in preparation of Discharge (in minutes): 34 Hospital Course - Lab Results Lab Results: Most Recent Lab Values WBC 6.9 K/uL (4.8-10.8) 10/06/16 06:02 RBC 4.64 Mil/uL (4.40-5.90) 10/06/16 06:02 Hgb 14.5 g/dL (12.0-18.0) 10/06/16 06:02 Hct 43.2 % (35.0-51.0) 10/06/16 06:02 MCV 93.0 fL (80.0-94.0) 10/06/16 06:02 MCH 31.2 pg (27.0-31.0) H 10/06/16 06:02 MCHC 33.5 g/dL (33.0-37.0) 10/06/16 06:02 RDW 14.2 % (11.5-14.5) 10/06/16 06:02 Plt Count 190 K/uL (130-400) 10/06/16 06:02 MPV 8.2 fL (7.2-11.7) 10/06/16 06:02 Neut % (Auto) 66.9 % (50.0-75.0) 10/06/16 06:02 Lymph % (Auto) 24.6 % (20.0-40.0) 10/06/16 06:02 [place] % (Auto) 5.3 % (0.0-10.0) 10/06/16 06:02 Eos % (Auto) 2.8 % (0.0-4.0) 10/06/16 06:02 Baso % (Auto) 0.4 % (0.0-2.0) 10/06/16 06:02 Neut # 4.6 K/uL (1.8-7.0) 10/06/16 06:02 Lymph # 1.7 K/uL (1.0-4.3) 10/06/16 06:02 [place] # 0.4 K/uL (0.0-0.8) 10/06/16 06:02 Eos # 0.2 K/uL (0.0-0.7) 10/06/16 06:02 Baso # 0.0 K/uL (0.0-0.2) 10/06/16 06:02 Sodium 137 mmol/L (132-148) 10/06/16 06:02 Potassium 4.3 mmol/L (3.6-5.2) 10/06/16 06:02 Chloride 103 mmol/L (98-107) 10/06/16 06:02 Carbon Dioxide 26 mmol/L (22-30) 10/06/16 06:02 Anion Gap 13 (10-20) 10/06/16 06:02 BUN 14 mg/dL (9-20) 10/06/16 06:02 Creatinine 0.6 MG/DL (0.8-1.5) L 10/06/16 06:02 Est GFR ( Amer) > 60 10/06/16 06:02 Est GFR (Non-Af Amer) > 60 10/06/16 06:02 POC Glucose (mg/dL) 181 mg/dL (65-110) H 10/07/16 12:24 Random Glucose 153 mg/dL (75-110) H 10/06/16 06:02 Hemoglobin A1c 6.8 % (4.2-6.5) H 10/06/16 06:02 Calcium 9.1 mg/dl (8.6-10.4) 10/06/16 06:02 Magnesium 1.7 mg/dL (1.6-2.3) 10/06/16 06:02 Total Bilirubin 0.6 mg/dL (0.2-1.3) 10/06/16 06:02 AST 20 U/L (17-59) 10/06/16 06:02 ALT 18 U/L (21-72) L 10/06/16 06:02 Alkaline Phosphatase 69 U/L (38-126) 10/06/16 06:02 Total Creatine Kinase 63 U/L (55-170) 10/06/16 00:32 CK-MB (Mass) 0.93 ng/mL (0.0-3.38) 10/06/16 00:32 Troponin I < 0.0120 ng/mL (0.00-0.120) 10/05/16 11:29 Troponin I, Quant 0.0290 ng/mL (0.00-0.120) 10/06/16 00:32 Total Protein 6.5 g/dL (6.3-8.3) 10/06/16 06:02 Albumin 3.7 g/dL (3.5-5.0) 10/06/16 06:02 Globulin 2.9 gm/dL (2.2-3.9) 10/06/16 06:02 Albumin/Globulin Ratio 1.3 (1.0-2.1) 10/06/16 06:02 Triglycerides 162 mg/dL (0-149) H 10/06/16 06:02 Cholesterol 176 mg/dL (0-199) 10/06/16 06:02 LDL Cholesterol Direct 119 mg/dL (0-129) 10/06/16 06:02 HDL Cholesterol 28 mg/dL (30-70) L 10/06/16 06:02 Lipase 111 U/L (23-300) 10/05/16 11:29 Free T4 0.77 ng/dL (0.78-2.19) L 10/06/16 07:07 TSH 3rd Generation 0.35 mIU/L (0.46-4.68) L 10/06/16 06:02 Urine Color Yellow (YELLOW) 10/05/16 11:29 Urine Clarity Clear (Clear) 10/05/16 11:29 Urine pH 5.0 (5.0-8.0) 10/05/16 11:29 Ur Specific [facility] 1.018 (1.003-1.030) 10/05/16 11:29 Urine Protein Negative mg/dL (NEGATIVE) 10/05/16 11:29 Urine Glucose (UA) Normal mg/dL (Normal) 10/05/16 11:29 Urine Ketones Negative mg/dL (NEGATIVE) 10/05/16 11:29 Urine Blood 1+ (NEGATIVE) H 10/05/16 11:29 Urine Nitrate Negative (NEGATIVE) 10/05/16 11:29 Urine Bilirubin Negative (NEGATIVE) 10/05/16 11:29 Urine Urobilinogen Normal mg/dL (0.2-1.0) 10/05/16 11:29 Ur Leukocyte Esterase Neg [place]/uL (Negative) 10/05/16 11:29 Urine WBC (Auto) < 1 /hpf (0-5) 10/05/16 11:29 Urine RBC (Auto) 11 /hpf (0-3) H 10/05/16 11:29 Ur Squamous Epith Cells < 1 /hpf (0-5) 10/05/16 11:29 Discharge Exam - Head Exam Head Exam: ATRAUMATIC Discharge Plan - Follow Up Plan Condition: STABLE Disposition: HOME/ ROUTINE Instructions: Heart Failure (DC), Chest Pain (DC), How to Stop Smoking (DC), Heart Healthy Diet (DC), Cigarette Smoking and Your Health (GEN) Additional Instructions: Patient is medically stable for discharge home. Patient should follow up with his PMD within one week of discharge. If patient does not have a PMD, they should follow up in the [facility]. Please call [phone]. Patient should follow up with Dr. Rodriguez in the office on September. He should call [phone] to confirm appointment. Patient may resume home meds. If symptoms return, go to the emergency room. Instructions have renee explained to the patient who is aware. Referrals: Daniela Rodriguez MD [Staff Provider] -
[2016-10-07 16:05] VITALS: PULSE 69
--- NOTE | 2016-10-07 17:49 | PCM.HF ---
Heart Failure Core Measure - Heart Failure Ejection Fraction: 40 % or Greater KANDI Inhibitor Prescribed: Yes Beta-Brenda Prescribed: None Angiotensin II Receptor Brenda Prescribed: No Contraindication/Reason for not providing: ON KANDI AnticoagulationTherapy for Atrial Fibrillation/Atrialflutter: No Contraindication/Reason for not providing: NO AFIB Aldosterone Antagonist Prescribed: No Contraindication/Reason for not providing: LVEF >40% Hydralazine Nitrate Prescribed: No Contraindication/Reason for not providing: LVEF >40% Implantable Cardioverter Defibrillator Therapy: No Contraindication/Reason for not providing: LVEF >40% Cardiac Resynchronization Therapy Prescribed: No Contraindication/Reason for not providing: LVEF >40% - Follow up Will be discharged to: Home Follow Up Date (must be within 7 days from discharge): 10/10/16 Follow Up Time: 09:00
--- NOTE | 2016-10-08 07:29 | CARD ---
APPROVED REPORT Protocol: GOGO Test Type: NUCLEAR STRESS Test Indications: CP Target HR: 146 bpm Resting ECG: normal Resting Heart Rate: 73 bpm Resting Blood Pressure: 122/80mmHg submaximum (85%): 124 bpm TEST SUMMARY PRETESTWARM-UP01:[id number]/80.2. MANUALSTAGE 201:[id number]/80.0. [id number]/80.0. POST EXERCISE Reason for Termination: Protocol completed Target HR: No Max HR: 102 bpm 70% of Maximum Predicted HR: 146 bpm Exercise duration: 04:12 min:sec, 0 Stage Exercise capacity: 4.6METs Max Blood Pressure: 140/80mmHg Blood Pressure response to exercise: normal resting BP - appropriate response Heart Rate response to exercise: appropriate Chest Pain: No, none Angina index: 0 Arrhythmia: No, none ST Change: No, none Deviation: 0 mm INTERPRETATION Stress EKG Conclusion: nl est EXAM: Myocardial Perfusion STRESS/REST Imaging Protocol The imaging protocol used to acquire images was Stress Tc-99m/rest Tc-99m 1 day Stress Spect myocardial perfusion imaging was performed in supine position 40 minutes following the injection of 12.7 mCi of Tc-99 Myoview. Gated Rest Spect was performed 40 minutes after intravenous 32.4 mCi Tc-99 Myoview injection. The images were gated to evaluate regional wall motion and calculate ventricular ejection fraction.Images were reconstructed using backfilter projection method in short horizontal and verticle long axis. Spect slices were generated. RESTING DATA XPJ310.31cyEW5.00L/min FKX348.00mlMyocardial Vxiu680.00g Av. Heart Rate67.00bpm EF26.00% STRESS DATA RRQ556.51gcMN1.80L/min JMN472.00mlMyocardial Rlyh962.00g EF25.00% Regional WT score at stress:3.00 Regional WM score at stress:0.00 Summed WT score at stress:32.00 Av. Heart Rate72.00bpmSummed WM score at stress:51.00 LV Perf. Quant 17 Seg. SSS4.00 17 Seg. SRS4.00 17 Seg. SDS2.00 Stress Defect Extent (% LAD)0.00Rest Defect Extent (% LAD)2.50Rev. Defect Extent (% LAD)0.00 Stress Defect Extent (% LCX)7.50Rest Defect Extent (% LCX)3.80Rev. Defect Extent (% LCX)6.30 Stress Defect Extent (% RCA)10.00Rest Defect Extent (% RCA)16.70Rev. Defect Extent (% RCA)1.10 Stress Defect Extent (% PRASAD)5.90Rest Defect Extent (% PRASAD)8.50Rev. Defect Extent (% PRASAD)2.80 Other Information Quality:Good Overall Exercise Capacity: Good IMPRESSION Abnormal Myocardial Perfusion exercise stress study Global LV Function: Severely reduced Stress Test Summary: Normal LV Perfusion Summary: Normal Metabolism/Perfusion Defects: There is a defect in the Mid-inferior wall. Conclusion 1. Clinical correlation suggested.
== END 2016-10-07 15:10 | disposition home or self-care (01) ==
LOC: C.ER 10:29 → C.9E 13:08 → C.6T 17:10
PROVIDERS: ADMIT Internal Medicine; ATTEND Internal Medicine
DX: I25.10 Atherosclerotic heart disease of native coronary artery without angina pectoris (principal); G89.29 Other chronic pain; E78.1 Pure hyperglyceridemia; E11.51 Type 2 diabetes mellitus with diabetic peripheral angiopathy without gangrene; F17.200 Nicotine dependence, unspecified, uncomplicated; I10 Essential (primary) hypertension; J45.909 Unspecified asthma, uncomplicated; N40.0 Benign prostatic hyperplasia without lower urinary tract symptoms
CPT/HCPCS: 36415; 71020; 72040; 72070; 72100; 78452; 80053; 80061; 81001; 82553; 82948; 83036; 83690; 83735; 84439; 84443; 84484; 85025; 93005; 93017; 93306; 97116; 97162; 97165; 97530; 99284; A9502; G0378; G8978; G8979; G8987; G8988; G8989; J1644

== ENCOUNTER 2017-06-13 06:47 | Day surgery (SDC) | payer MEDICARE ==
--- NOTE | 2017-06-13 08:51 | CP.SDSHP ---
Same Day Surgery H & P - History Proposed Procedure: egd Pre-Op Diagnosis: epigastric pain. heartburn - Previous Medical/Surgical History Cardiac: Hypertension Endocrine/Metabolic: Diabetes Neuro: Backaches Misc: Other (colon polyps, L/S Disc disease) Comments: Patient is extremely poor historian and did not state cardiac history nor report in office that he is taking Coumadin or any other blood thinners. Only diabetic pills stated. Will procede with diagnostic EGD but no biopsies to be taken. Previous Surgical History: Spinal surgery x 3. Fem-pop bypass? AAA repair. Exploratory laparotomy due to fall at work - Allergies Allergies: Allergies iodine Allergy (Verified 06/13/17 07:57) ITCHING Penicillins Allergy (Verified 06/13/17 07:57) ITCHING hives, itching rash - Physical Exam Vital Signs: Vital Signs 06/13/17 07:50 Temperature 97 F L Pulse Rate 75 Respiratory 19 Rate Blood Pressure 131/69 O2 Sat by Pulse 100 Oximetry Mental Status: Alert & Oriented x3 Neuro: WNL Heart: WNL Lungs: WNL GI: WNL - Impression Impression: epigastric pain. heartburn Pt. Evaluated Today:Candidate for Anesthesia & Procedure: Yes - Date & Time Date: 06/13/17 Time: 08:52 Short Stay Discharge - Short Stay Discharge Admitting Diagnosis/Reason for Visit: EPIGASTRIC PAIN / HEARTBURN Disposition: HOME/ ROUTINE
[2017-06-13] MEDS ORDERED: Pantoprazole 40 mg EC Tab PO STA (08:55)
[2017-06-13] MEDS ORDERED: Lactated Ringer's 1,000 ML IV ONE (08:55)
[2017-06-13] MEDS ORDERED: Propofol 10 mg/ml Inj (20 ML) ONE (09:14)
[2017-06-13] MEDS ORDERED: Lactated Ringer's 1,000 ML IV SCH (09:15)
[2017-06-13 09:29] VITALS: O2SAT 97
[2017-06-13 10:15] VITALS: PULSE 67; RESP 19
[2017-06-13 10:22] VITALS: BP 137/82; TEMP 98
== END 2017-06-13 10:15 | disposition home or self-care (01) ==
LOC: C.ENDO 06:47
PROVIDERS: ATTEND Internal Medicine Gastroenterology
DX: K29.70 Gastritis, unspecified, without bleeding (principal); K21.9 Gastro-esophageal reflux disease without esophagitis; K44.9 Diaphragmatic hernia without obstruction or gangrene
CPT/HCPCS: 43239; 82948; 88305; 88342; J2001; J2704; J7120

== ENCOUNTER 2017-12-18 02:49 | Observation (INO) | payer MEDICAID, MEDICARE ==
[2017-12-18 02:49] VITALS: BMI 27.1
[2017-12-18 03:33] LABS: BASO # 0.1 K/uL (0.0-0.2); BASO % 0.6 % (0.0-2.0); EOS # 0.2 K/uL (0.0-0.7); EOS % 1.3 % (0.0-4.0); HEMOGLOBIN 14.4 g/dL (12.0-18.0); LYMPH # 1.3 K/uL (1.0-4.3); MEAN CELL VOLUME 91.7 fL (80.0-94.0); MEAN CORPUSCULAR HEMOGLOBIN 30.5 pg (27.0-31.0); MEAN CORPUSCULAR HGB CONC 33.3 g/dL (33.0-37.0); MEAN PLATELET VOLUME 8.7 fL (7.2-11.7); MONO # 0.7 K/uL (0.0-0.8); MONO % 5.4 % (0.0-10.0); NEUT % 82.7 % (50.0-75.0); NRBC % 0.1 % (0.0-2.0); RBC 4.72 Mil/uL (4.40-5.90); RED CELL DISTRIBUTION WIDTH 14.5 % (11.5-14.5); WHITE BLOOD COUNT 13.3 K/uL (4.8-10.8)
[2017-12-18 03:50] LABS: ALB/GLOB RATIO 1.4 (1.0-2.1); ALBUMIN 3.9 g/dL (3.5-5.0); ALT/SGPT 41 U/L (21-72); AST/SGOT 63 U/L (17-59); BLOOD UREA NITROGEN 9 mg/dL (9-20); GFR AFRICAN-AMERICAN > 60; GFR NON-AFRICAN AMERICAN > 60; LIPASE 108 U/L (23-300)
--- NOTE | 2017-12-18 03:57 | C.PDOC ---
History Of Present Illness 77 y/o male present to the ER complaining of constant, worsening abdominal pain for the past two days. He reports experiencing some nausea and feelinnf as though his food is stuck in his epigastric region. The patient denies any vomiting, chest pain, diarrhea, or SOB. Hx: AAA repair, possible fem-POP bypass, HTN and diabetes Time Seen by Provider: 12/18/17 02:55 Chief Complaint (Nursing): Abdominal Pain History Per: Patient History/Exam Limitations: no limitations Onset/Duration Of Symptoms: Days Current Symptoms Are (Timing): Still Present Location Of Pain/Discomfort: Epigastric Quality Of Discomfort: "Pain" Associated Symptoms: Nausea. denies: Fever, Vomiting, Diarrhea Recent travel outside of the [place]: No Past Medical History Reviewed: Historical Data, Nursing Documentation, Vital Signs Vital Signs: Last Vital Signs Temp 97.8 F 12/18/17 02:56 Pulse 105 H 12/18/17 05:37 Resp 14 12/18/17 05:37 BP 164/104 H 12/18/17 05:37 Pulse Ox 99 12/18/17 05:37 - Medical History PMH: Anemia, Anxiety, Arthritis (B/L KNEE L>R), Asthma, CAD, Cardiac Aneurysm (' 'LOWER ABDOMEN''), Diabetes (NIDDM), Gastritis, HTN, Hyperthyroidism, Kidney Stones, Pancreatitis Surgical History: Other Surgeries: AAA, Cardiac Extraction, Cardiac Stents, Eye surgery, Herniorrhaphy, vascular surgery, back suger x3 - [facility] Procedures BYPASS L FEM ART TO L FEMOR A WITH AUTOL VN, OPEN APPROACH (03/14/16) CATARAC PHACOEMULS/ASPIR (07/23/14) CONTINUOUS INVASIVE MECHANICAL VENTILATION <96 CONSEC HRS (10/14/14) CONTRAST AORTOGRAM (09/16/14) CONTRAST ARTERIOGRAM-LEG (09/16/14) CORONAR ARTERIOGR-2 CATH (01/04/13) ENDOVASCULAR IMPLANTATION OF OTHER GRAFT IN ABDOMINAL AORTA (10/14/14) EXCISION OF LEFT FEMORAL VEIN, OPEN APPROACH (03/14/16) HEMORRHAGE CONTROL NOS (10/14/14) INSERT ENDOTRACHEAL TUBE (10/14/14) INSERT LENS AT CATAR EXT (07/23/14) LEFT HEART CARDIAC CATH (01/04/13) LT HEART ANGIOCARDIOGRAM (01/04/13) OTHER ENDOVASCULAR PROCEDURES ON OTHER VESSELS (10/30/14) PACKED CELL TRANSFUSION (10/30/14) PROCEDURE ON VESSEL BIFURCATION (10/14/14) REMOVE HEAD/NECK DEV NEC (10/14/14) TRANSFUSE NONAUT RED BLOOD CELLS IN PERIPH VEIN, PERC (03/14/16) VASC SHUNT & BYPASS NEC (10/30/14) VENOUS CATHETERIZATION NEC (10/14/14) Family History: States: Unknown Family Hx - Social History Hx Tobacco Use: No (quit one year ago. Formerly 1/2 ppd for 20 years. ) Hx Alcohol Use: No Hx Substance Use: No - Immunization History Hx Tetanus Toxoid Vaccination: Yes Hx Influenza Vaccination: Yes Hx Pneumococcal Vaccination: Yes Review Of Systems Except As Marked, All Systems Reviewed And Found Negative. Constitutional: Negative for: Fever, Chills Eyes: Negative for: Pain, Vision Change ENT: Negative for: Ear Pain, Ear Discharge Cardiovascular: Negative for: Chest Pain, Palpitations, Orthopnea, Paroxysmal Noc. Dyspnea Respiratory: Negative for: Cough, Shortness of Breath, SOB with Excertion, Pleuritic Pain Gastrointestinal: Positive for: Nausea, Abdominal Pain. Negative for: Vomiting , Diarrhea, Constipation Genitourinary: Negative for: Dysuria, Frequency Musculoskeletal: Negative for: Neck Pain, Shoulder Pain Skin: Negative for: Rash Neurological: Negative for: Weakness Psych: Negative for: Anxiety, Depression Physical Exam - Physical Exam Appears: Well, Non-toxic, No Acute Distress Skin: Normal Color, Warm, Dry Head: Atraumatic, Normacephalic Eye(s): bilateral: Normal Inspection, PERRL, EOMI Ear(s): Bilateral: Normal Oral Mucosa: Moist Tongue: Normal Appearing Lips: Normal Appearing Teeth: Normal Dentition Gingiva: Normal Appearing Throat: Normal Neck: No Normal Chest: Symmetrical Cardiovascular: Rhythm Regular, No Murmur Respiratory: Normal Breath Sounds, No Rales, No Rhonchi, No Wheezing Gastrointestinal/Abdominal: Bowel Sounds, Tenderness (diffuse abd tenderness), No Distention Extremity: Bilateral: Normal Color And Temperature, Normal ROM Neurological/Psych: Oriented x3, Normal Speech ED Course And Treatment - Laboratory Results Result Diagrams: 12/18/17 03:26 12/18/17 03:26 ECG: Interpreted By Me Interpretation Of ECG: sinus arrythmia left axis LVH. Vent rate- 78 bpm. VT- 190. QRS- 198. QT- 472. QTc- 538 O2 Sat by Pulse Oximetry: 99 (RA) Pulse Ox Interpretation: Normal Medical Decision Making Medical Decision Making: Impression: 77 y/o male with nausea and worsening abdominal pain Plan: --Abd/Pelvis CT --EKG --B-Type natriuretic --CMP --Lact Acid --Lipase --Troponin --CBC --PTT --Chest X-Ray --Obstructive series X-Ray --Zofran Inj 4 mg --fentaNYL 50 mcg (x2) --Protonix Inj WBC 41514 Tropnin 0.019 BNP: 1700 0455 -- gave fentaNYL twice with slight relief pt turned over to Dr. Ng pending ct a/p and final dispo Disposition Counseled Patient/Family Regarding: Diagnosis - Disposition Disposition: HOSPITALIZED Disposition Time: 06:21 Condition: FAIR Forms: [employer] (Moroccan) - Clinical Impression Clinical Impression: Abdominal pain, Nausea, Nausea - PA / EXEC. CREATIVE DIRECTOR / Resident Statement MD/DO has reviewed & agrees with the documentation as recorded. - Scribe Statement The provider has reviewed the documentation as recorded by the Scribe (Kennedi Lakhani) Provider Attestation: All medical record entries made by the Scribe were at my direction and personally dictated by me. I have reviewed the chart and agree that the record accurately reflects my personal performance of the history, physical exam, medical decision making, and the department course for this patient. I have also personally directed, reviewed, and agree with the discharge instructions and disposition.
[2017-12-18 04:02] LABS: B-TYPE NATRIURETIC PEPTIDE 1740 pg/mL (0-900)
[2017-12-18] MEDS ORDERED: Iohexol 240 (50 ml) PO ONE (04:12)
[2017-12-18] MEDS ORDERED: Iohexol 240 (50 ml) ONE (04:13)
[2017-12-18 05:02] LABS: INR 1.1; PROTHROMBIN TIME 11.8 SECONDS (9.7-12.2)
[2017-12-18 07:17] LABS: VENOUS BLOOD GAS PCO2 44 mmHg (40-60); VENOUS BLOOD GAS PO2 35 mm/Hg (30-55); VENOUS BLOOD PH 7.38 (7.32-7.43)
[2017-12-18 07:18] LABS: VENOUS BLOOD GAS BASE EXCESS 0.5 mmol/L (0.0-2.0)
[2017-12-18 07:49] VITALS: RESP 20
[2017-12-18 08:08] LABS: SQUAMOUS EPITHIAL < 1 /hpf (0-5); URINE BILIRUBIN NEGATIVE (NEGATIVE); URINE BLOOD 2+ (NEGATIVE); URINE CLARITY Clear (Clear); URINE COLOR Yellow (YELLOW); URINE GLUCOSE (UA) NORMAL (Normal); URINE LEUKOCYTE ESTERASE NEG Leu/uL (Negative); URINE PROTEIN 1+ mg/dL (NEGATIVE)
--- NOTE | 2017-12-18 09:05 | CT ---
Date of service: 12/18/2017 PROCEDURE: CT Abdomen and Pelvis without intravenous contrast HISTORY: Abdominal pain COMPARISON: None. TECHNIQUE: Multiple contiguous axial images were performed through the abdomen and pelvis with intravenous contrast. Subsequently, sagittal and coronal reformatted images were obtained. Radiation dose: Total exam DLP = 452 mGy-cm. This CT exam was performed using one or more of the following dose reduction techniques: Automated exposure control, adjustment of the mA and/or kV according to patient size, and/or use of iterative reconstruction technique. FINDINGS: LOWER THORAX: Fibrotic changes at the lung bases. Few small scattered nodular densities at the lung bases. LIVER: Mild fatty infiltration of the liver. Mild intrahepatic biliary ductal dilatation. GALLBLADDER AND BILE DUCTS: Calcified gallstone present. PANCREAS: Unremarkable. No gross lesion or ductal dilatation. SPLEEN: Unremarkable. ADRENALS: Unremarkable. No mass. KIDNEYS AND URETERS: Multiple simple renal cysts. For example, in the lower pole of the right kidney, there is a 2.2 centimeter low-attenuation lesion demonstrating a Hounsfield unit attenuation of 11; and in the upper pole of the right kidney, there is a 4.7 centimeter low-attenuation lesion demonstrating a Hounsfield unit attenuation of 8. Additional scattered hypoattenuated lesions in both kidneys. Bilateral renal calcifications, likely vascular. Nonobstructing left renal calculus. VASCULATURE: Aortoiliac stent. Abdominal aortic aneurysm measures up to 4.1 centimeters. BOWEL: Unremarkable. No obstruction. No gross mural thickening. APPENDIX: Unremarkable. Normal appendix. PERITONEUM: Unremarkable. No free fluid. No free air. LYMPH NODES: Unremarkable. No enlarged lymph nodes. BLADDER: Unremarkable. REPRODUCTIVE: Heterogeneous prominent prostate. BONES: Surgical changes are noted in the lower lumbar spine. OTHER FINDINGS: Nonobstructing left inguinal hernia. IMPRESSION: Negative acute. Additional findings as above. These findings were preliminarily reported at 6:30 a.m. on 12/18/[address] from [facility].
[2017-12-18] MEDS ORDERED: Sodium Chloride 0.9% 1,000 ML IV SCH (10:00)
[2017-12-18] MEDS ORDERED: Cilostazol 100 mg Tab UD PO SCH (10:00)
--- NOTE | 2017-12-18 12:06 | RAD ---
Chest x-ray two views History: Chest pain. Comparison: 07/05/2017 Findings: Worsening diffuse increased interstitial lung markings throughout both lung sow with more prominent consolidative opacification in the right mid and left mid to lower lung zones. Biapical pleural thickening with upper lobe granulomatous changes. Enlarged ectatic aorta with calcification at the aortic knob. Degenerative changes in the spine with degenerative changes in the bilateral shoulders. Vascular stent projecting over the mid abdomen. Impression: Worsening diffuse increased interstitial lung markings throughout both lung sow with more prominent consolidative opacification in the right mid and left mid to lower lung zones. Biapical pleural thickening with upper lobe granulomatous changes. Enlarged ectatic aorta with calcification at the aortic knob. Degenerative changes in the spine with degenerative changes in the bilateral shoulders. Vascular stent projecting over the mid abdomen.
--- NOTE | 2017-12-18 12:11 | RAD ---
Abdomen three views History: Obstructive series. Comparison: CT dated 12/18/2017 Findings: Aortic stent in place. Postsurgical changes in the spine. Air seen throughout the colon and rectum. No evidence for gross obstruction. Relative paucity of small bowel gas. Vascular calcifications. Degenerative changes in the spine and hips. Linear atelectasis in the right midlung zone. Impression: Aortic stent in place. Postsurgical changes in the spine. Air seen throughout the colon and rectum. No evidence for gross obstruction. Relative paucity of small bowel gas. Vascular calcifications. Degenerative changes in the spine and hips. Linear atelectasis in the right midlung zone.
[2017-12-18 12:27] VITALS: O2SAT 95
[2017-12-18 16:11] VITALS: BP 158/83; PULSE 98; TEMP 99.7
--- NOTE | 2017-12-19 17:41 | CARD ---
APPROVED REPORT Date of service: 12/18/2017 EKG Measurement Heart [id number] <Conclusion> Sinus bradycardia with an atrial premature beat Left axis deviation Nonspecific intraventricular block Left ventricular hypertrophy with repolarization abnormality Abnormal ECG
[2017-12-20] MEDS ORDERED: Pneumococcal 23-Valent Vaccine IM ONE (12:33)
== END 2017-12-18 17:35 | disposition left against medical advice (07) ==
LOC: C.ER 02:49 → C.9E 07:19 → C.3T 07:58
PROVIDERS: ADMIT Internal Medicine Nephrology; ATTEND Internal Medicine Nephrology
DX: R10.9 Unspecified abdominal pain (principal); R11.0 Nausea; I10 Essential (primary) hypertension; E11.9 Type 2 diabetes mellitus without complications; I25.10 Atherosclerotic heart disease of native coronary artery without angina pectoris; J45.909 Unspecified asthma, uncomplicated; Z86.79 Personal history of other diseases of the circulatory system; Z87.442 Personal history of urinary calculi; Z95.5 Presence of coronary angioplasty implant and graft
CPT/HCPCS: 71046; 74022; 74176; 80053; 81001; 82803; 82948; 83605; 83690; 83880; 84484; 85025; 85610; 87086; 96374; 97116; 97162; C9113; G0378; G8978; G8979; J2405; J3010; J7030; Q9966

== ENCOUNTER 2018-03-07 13:04 | Inpatient (IN) | payer MEDICARE ==
[2018-03-07 13:05] VITALS: BMI 24.3
[2018-03-07 13:53] LABS: BASO # 0.1 K/uL (0.0-0.2); EOS # 0.4 K/uL (0.0-0.7); EOS % 3.2 % (0.0-4.0); HEMOGLOBIN 14.7 g/dL (12.0-18.0); LYMPH # 2.8 K/uL (1.0-4.3); LYMPH % 22.2 % (20.0-40.0); MEAN CELL VOLUME 92.5 fL (80.0-94.0); MEAN CORPUSCULAR HEMOGLOBIN 31.2 pg (27.0-31.0); MEAN CORPUSCULAR HGB CONC 33.7 g/dL (33.0-37.0); MEAN PLATELET VOLUME 8.3 fL (7.2-11.7); MONO # 0.7 K/uL (0.0-0.8); MONO % 5.1 % (0.0-10.0); NEUT # 8.6 K/uL (1.8-7.0); NEUT % 68.5 % (50.0-75.0); RBC 4.7 Mil/uL (4.40-5.90); RED CELL DISTRIBUTION WIDTH 14.2 % (11.5-14.5); WHITE BLOOD COUNT 12.6 K/uL (4.8-10.8)
--- NOTE | 2018-03-07 13:54 | C.PDOC ---
History Of Present Illness 78 year old male with a history of gall stones, biliary stents, and CHF was sent by PMD for evaluation of shortness of breath. Patient reports EF 20%. Denies fever, chest pain, nausea, vomiting, and any other associated symptoms. Time Seen by Provider: 03/07/18 13:09 Chief Complaint (Nursing): Abdominal Pain History Per: Patient History/Exam Limitations: no limitations Current Symptoms Are (Timing): Still Present Past Medical History Reviewed: Historical Data, Nursing Documentation, Vital Signs Vital Signs: Last Vital Signs Temp 97.6 F 03/07/18 13:17 Pulse 89 03/07/18 13:17 Resp 18 03/07/18 13:17 BP 107/69 03/07/18 13:17 Pulse Ox 97 03/07/18 13:17 - Medical History PMH: Anemia, Anxiety, Arthritis, Asthma, CAD, Cardiac Aneurysm (''LOWER ABDOMEN''), Diabetes (NIDDM), Gastritis, HTN, Hypercholesterolemia, Hyperthyroidism, Kidney Stones, Pancreatitis Surgical History: - [facility] Procedures BYPASS L FEM ART TO L FEMOR A WITH AUTOL VN, OPEN APPROACH (03/14/16) CATARAC PHACOEMULS/ASPIR (07/23/14) CONTINUOUS INVASIVE MECHANICAL VENTILATION <96 CONSEC HRS (10/14/14) CONTRAST AORTOGRAM (09/16/14) CONTRAST ARTERIOGRAM-LEG (09/16/14) CORONAR ARTERIOGR-2 CATH (01/04/13) ENDOVASCULAR IMPLANTATION OF OTHER GRAFT IN ABDOMINAL AORTA (10/14/14) EXCISION OF LEFT FEMORAL VEIN, OPEN APPROACH (03/14/16) HEMORRHAGE CONTROL NOS (10/14/14) INSERT ENDOTRACHEAL TUBE (10/14/14) INSERT LENS AT CATAR EXT (07/23/14) LEFT HEART CARDIAC CATH (01/04/13) LT HEART ANGIOCARDIOGRAM (01/04/13) OTHER ENDOVASCULAR PROCEDURES ON OTHER VESSELS (10/30/14) PACKED CELL TRANSFUSION (10/30/14) PROCEDURE ON VESSEL BIFURCATION (10/14/14) REMOVE HEAD/NECK DEV NEC (10/14/14) TRANSFUSE NONAUT RED BLOOD CELLS IN PERIPH VEIN, PERC (03/14/16) VASC SHUNT & BYPASS NEC (10/30/14) VENOUS CATHETERIZATION NEC (10/14/14) Family History: States: Unknown Family Hx - Social History Hx Tobacco Use: No (quit one year ago. Formerly 1/2 ppd for 20 years. ) Hx Alcohol Use: No Hx Substance Use: No - Immunization History Hx Tetanus Toxoid Vaccination: Yes Hx Influenza Vaccination: Yes Hx Pneumococcal Vaccination: Yes Review Of Systems Except As Marked, All Systems Reviewed And Found Negative. Constitutional: Negative for: Fever Cardiovascular: Negative for: Chest Pain Respiratory: Positive for: Shortness of Breath Gastrointestinal: Negative for: Nausea, Vomiting Physical Exam - Physical Exam Appears: Well, Non-toxic, No Acute Distress Skin: Normal Color, Warm, Dry Head: Atraumatic, Normacephalic Eye(s): bilateral: Normal Inspection Oral Mucosa: Moist Neck: Normal ROM, Supple Chest: Symmetrical, No Deformity Cardiovascular: Rhythm Regular, No Murmur Respiratory: Rales (at the bases bilaterally. ), No Rhonchi Gastrointestinal/Abdominal: Normal Exam, Soft, No Tenderness, No Distention, No Guarding, No Rebound, Other (right biliary drainage.) Neurological/Psych: Oriented x3, Normal Speech ED Course And Treatment - Laboratory Results Result Diagrams: 03/07/18 13:50 03/07/18 13:50 O2 Sat by Pulse Oximetry: 97 (RA) Pulse Ox Interpretation: Normal - Other Rad CXR X-Ray: Viewed By Me, Read By Radiologist Interpretation: LUNGS: There is ill-defined opacity in the right upper lobe abutting the minor fissure. This is minimally improved in appearance compared to examination dating back to 12/18/2017. Though this may represent a focal infiltrate, the possibility of a neoplasm must also be considered. Recommend further evaluation with computed tomography of the chest. No infiltrate elsewhere. PLEURA: No pneumothorax or pleural fluid seen. CARDIOVASCULAR: Normal. OSSEOUS STRUCTURES: No significant abnormalities. VISUALIZED UPPER ABDOMEN: Normal. OTHER FINDINGS: None. IMPRESSION: Right upper lobe opacity. Infiltrate versus neoplasm. Recommend further evaluation with computed tomography. Medical Decision Making Medical Decision Making: Plan: -EKG -Blood sent. -CXR. pt sent by dr tejada. ?opacity on cxr. perisstent since nov. antbiotics held. accepted by dr madden. Disposition - Disposition Disposition: HOSPITALIZED Disposition Time: 16:00 Condition: STABLE - Clinical Impression Clinical Impression: CHF (congestive heart failure) - Scribe Statement The provider has reviewed the documentation as recorded by the Scribe (Caryn Parry) Provider Attestation: All medical record entries made by the Niranjanibe were at my direction and personally dictated by me. I have reviewed the chart and agree that the record accurately reflects my personal performance of the history, physical exam, medical decision making, and the department course for this patient. I have also personally directed, reviewed, and agree with the discharge instructions and disposition. Decision To Admit - Pt Status Changed To: Hospital Disposition Of: Inpatient - Admit Certification Admit to Inpatient:: After my assessment, the patient will require hospitalization for at least two midnights. This is because of the severity of symptoms shown, intensity of services needed, and/or the medical risk in this patient being treated as an outpatient. - InPatient: Physician Admission Certification:: needs mckinley. - . Bed Request Type: Telemetry Admitting Physician: Gunjan Madden Patient Diagnosis: CHF (congestive heart failure)
[2018-03-07 14:01] LABS: INR 1.1; PROTHROMBIN TIME 11.5 SECONDS (9.7-12.2)
[2018-03-07 14:17] LABS: B-TYPE NATRIURETIC PEPTIDE 802 pg/mL (0-900)
[2018-03-07 14:20] LABS: ALB/GLOB RATIO 1.5 (1.0-2.1); ALBUMIN 4.6 g/dL (3.5-5.0); ALT/SGPT 56 U/L (21-72); AST/SGOT 32 U/L (17-59); BLOOD UREA NITROGEN 16 mg/dL (9-20); CALCIUM 9.7 mg/dl (8.6-10.4); GFR NON-AFRICAN AMERICAN > 60; LIPASE 173 U/L (23-300)
--- NOTE | 2018-03-07 14:39 | RAD ---
Date of service: 03/07/2018 PROCEDURE: CHEST RADIOGRAPH, 1 VIEW HISTORY: chest pain COMPARISON: 02/06/2018 and 12/18/2017 FINDINGS: LUNGS: There is ill-defined opacity in the right upper lobe abutting the minor fissure. This is minimally improved in appearance compared to examination dating back to 12/18/2017. Though this may represent a focal infiltrate, the possibility of a neoplasm must also be considered. Recommend further evaluation with computed tomography of the chest. No infiltrate elsewhere. PLEURA: No pneumothorax or pleural fluid seen. CARDIOVASCULAR: Normal. OSSEOUS STRUCTURES: No significant abnormalities. VISUALIZED UPPER ABDOMEN: Normal. OTHER FINDINGS: None. IMPRESSION: Right upper lobe opacity. Infiltrate versus neoplasm. Recommend further evaluation with computed tomography.
--- NOTE | 2018-03-07 18:03 | CP.PCM.HP ---
History of Present Illness - History of Present Illness History of Present Illness: CC: abd pain and cholecystostomy tube HPI: 78 y/o M who presents to ed following that he was referred by He has extensive history with PVD peripheral intervensions and AAA and s/p stent. smoker DM high cholesterol c/oi poor appetite, nausea but no vomiting wt loss rash in the left arm no chest pain has percu tube noted in the RT UQ PMHx: AAA, PVD, HTN, DM2, anemia, hyperthyroidism Meds: reviewed in chart Allergies: PCN PSHx: AAA repair, R femoral-popliteal bypass graft SHx: former smoker, ~10pack years. denies EtOH, drugs FHx: noncontributory PMH: CAD, DM, PVD, HTN, BPH, AAA, GI bleed 10/14/2016: ENDOVASCULAR REPAIR OF aaa WITH ENDOLOGIX GRAFT. 10/30/2014: right external iliac to popliteal bypass 03/14/2016: left femoral popliteal bypass with reversed saphenous vein Metformin 500 mg po BID Cilostazol 100 mg po daily Lyrica 75 mg po daily Atorvastatin 40 mg po daily Amlodipine 20 mg po daily Glipizide 5 mg po BID Clopidogrel 75 mg po daily Dutasteride 0.5 mg po daily Allergies: penicillins, shellfish Family History: Father of [place], Mother- [place] Surgical History: Elective femoral-popliteal bypass with saphenous vein graft (03/14/16), external iliac-popliteal bypass, right external iliac artery thromboembolectomy, AAA graft insertion, and prostate surgery Social history: The patient lives alone in [place]. He has smoked a half pack of cigarettes/day for >30 years. He denies any history of alcohol consumption or recreational drug use. o/e labs a/p: Past Patient History - Infectious Disease Hx of Infectious Diseases: None - Tetanus Immunizations Tetanus Immunization: Unknown - Past Medical History & Family History Past Medical History?: Yes - Past Social History Smoking Status: Light Smoker < 10 Cigarettes Daily - CARDIAC Hx Hypercholesterolemia: Yes Hx Hypertension: Yes - PULMONARY Hx Asthma: Yes - NEUROLOGICAL Hx Neurological Disorder: No - HEENT Hx HEENT Problems: Yes Hx Cataracts: Yes (b/l cataract surgery) - RENAL Hx Kidney Stones: Yes - ENDOCRINE/METABOLIC Hx Hyperthyroidism: Yes - HEMATOLOGICAL/ONCOLOGICAL Hx Anemia: Yes - INTEGUMENTARY Hx Dermatological Problems: Yes Other/Comment: DRY ITCHING SKIN WITH SOME BROKEN DOWN AREAS, STATES HE SHOWED DOCTOR NO MEDS GIVEN - MUSCULOSKELETAL/RHEUMATOLOGICAL Hx Arthritis: Yes - GASTROINTESTINAL Hx Gastritis: Yes Hx Pancreatitis: Yes - GENITOURINARY/GYNECOLOGICAL Hx Genitourinary Disorders: Yes Hx Prostate Problems: Yes (BPH) - PSYCHIATRIC Hx Anxiety: Yes Hx Substance Use: No - SURGICAL HISTORY Hx Surgeries: Yes Hx Cataract Extraction: Yes (bilateral) Hx Cardiac Catheterization: Yes (stents) Hx Eye Surgery: Yes Hx Herniorrhaphy: Yes Hx Vascular Surgery: Yes - ANESTHESIA Hx Anesthesia: Yes Hx Anesthesia Reactions: No Hx Malignant Hyperthermia: No Meds Allergies/Adverse Reactions: Allergies Allergy/AdvReac Type Severity Reaction Status Date / Time iodine Allergy Intermediate ITCHING Verified 03/07/18 13:15 Penicillins Allergy Intermediate ITCHING Verified 03/07/18 13:15 Results - Vital Signs Recent Vital Signs: Last Vital Signs Temp 97.7 F 03/07/18 16:00 Pulse 88 03/07/18 16:00 Resp 16 03/07/18 16:16 BP 127/70 03/07/18 16:00 Pulse Ox 98 03/07/18 16:00 - Labs Result Diagrams: 03/07/18 13:50 03/07/18 13:50 Labs: Laboratory Results - last 24 hr 03/07/18 03/07/18 03/07/18 13:50 13:50 13:50 WBC 12.6 H RBC 4.70 Hgb 14.7 Hct 43.5 MCV 92.5 MCH 31.2 H MCHC 33.7 RDW 14.2 Plt Count 220 MPV 8.3 Neut % (Auto) 68.5 Lymph % (Auto) 22.2 Maries % (Auto) 5.1 Eos % (Auto) 3.2 Baso % (Auto) 1.0 Neut # (Auto) 8.6 H Lymph # (Auto) 2.8 Maries # (Auto) 0.7 Eos # (Auto) 0.4 Baso # (Auto) 0.1 PT 11.5 INR 1.1 APTT 33 Sodium 142 Potassium 4.8 Chloride 105 Carbon Dioxide 26 Anion Gap 16 BUN 16 Creatinine 0.8 Est GFR ( Amer) > 60 Est GFR (Non-Af Amer) > 60 POC Glucose (mg/dL) Random Glucose 106 Calcium 9.7 Total Bilirubin 0.6 AST 32 ALT 56 Alkaline Phosphatase 101 Troponin I 0.0130 NT-Pro-B Natriuret Pep 802 Total Protein 7.7 Albumin 4.6 Globulin 3.1 Albumin/Globulin Ratio 1.5 Lipase 173 03/07/18 16:57 WBC RBC Hgb Hct MCV MCH MCHC RDW Plt Count MPV Neut % (Auto) Lymph % (Auto) Maries % (Auto) Eos % (Auto) Baso % (Auto) Neut # (Auto) Lymph # (Auto) Maries # (Auto) Eos # (Auto) Baso # (Auto) PT INR APTT Sodium Potassium Chloride Carbon Dioxide Anion Gap BUN Creatinine Est GFR ( Amer) Est GFR (Non-Af Amer) POC Glucose (mg/dL) 156 H Random Glucose Calcium Total Bilirubin AST ALT Alkaline Phosphatase Troponin I NT-Pro-B Natriuret Pep Total Protein Albumin Globulin Albumin/Globulin Ratio Lipase
--- NOTE | 2018-03-07 22:05 | CP.PCM.CON ---
History of Present Illness - History of Present Illness History of Present Illness: SURGERY CONSULT NOTE FOR DR. HARP 78 y/o M with history of CAD, CHF, AAA, Diabetes, HTN, Nephrolithiasis, BPH presented to the ED with SOB as per ED report. Currently, pt is complaining of an itching rash on posterior LUE forearm and RLE. Patient is a poor historian and much of the history was obtained from EMR. He currently denies any fever, headache, chest pain, SOB, nausea, vomiting, diarrhea, abdominal pain, LE edema. He does feel a little constipation and has not had a bowel movement today. Surgery was consulted for cholecystostomy tube which was placed 5 months ago. Per pt he empties it multiple times a day. He reports that he is tolerating diet well. PMH: CAD, CHF, AAA, Diabetes, HTN, Nephrolithiasis, BPH, Pancreatitis, PAD PSH: L Fem Pop Bypass, R External Iliac to Popliteal bypass, EVAR, exploratory laporotomy status post-trauma Meds: Metformin, Rosuvastatin, Metoprolol, Glipizide Allergies: Iodine, Penicillins Social Hx: Tobacco-quit 1 year ago-15 pack year history; Alcohol use socially; No substance use Review of Systems - Review of Systems Review of Systems: As per HPI Past Patient History - Infectious Disease Hx of Infectious Diseases: None - Tetanus Immunizations Tetanus Immunization: Unknown - Past Medical History & Family History Past Medical History?: Yes - Past Social History Smoking Status: Current Some Days Smoker - CARDIAC Hx Hypercholesterolemia: Yes Hx Hypertension: Yes - PULMONARY Hx Asthma: Yes - NEUROLOGICAL Hx Neurological Disorder: No - HEENT Hx HEENT Problems: Yes Hx Cataracts: Yes (b/l cataract surgery) - RENAL Hx Kidney Stones: Yes - ENDOCRINE/METABOLIC Hx Hyperthyroidism: Yes - HEMATOLOGICAL/ONCOLOGICAL Hx Anemia: Yes - INTEGUMENTARY Hx Dermatological Problems: Yes Other/Comment: DRY ITCHING SKIN WITH SOME BROKEN DOWN AREAS, STATES HE SHOWED DOCTOR NO MEDS GIVEN - MUSCULOSKELETAL/RHEUMATOLOGICAL Hx Arthritis: Yes Hx Falls: No - GASTROINTESTINAL Hx Gastritis: Yes Hx Pancreatitis: Yes - GENITOURINARY/GYNECOLOGICAL Hx Genitourinary Disorders: Yes Hx Prostate Problems: Yes (BPH) - PSYCHIATRIC Hx Anxiety: Yes Hx Substance Use: Yes - SURGICAL HISTORY Hx Surgeries: Yes Hx Cataract Extraction: Yes (bilateral) Hx Cardiac Catheterization: Yes (stents) Hx Eye Surgery: Yes Hx Herniorrhaphy: Yes Hx Vascular Surgery: Yes - ANESTHESIA Hx Anesthesia: Yes Hx Anesthesia Reactions: No Hx Malignant Hyperthermia: No Meds Allergies/Adverse Reactions: Allergies Allergy/AdvReac Type Severity Reaction Status Date / Time iodine Allergy Intermediate ITCHING Verified 03/07/18 13:15 Penicillins Allergy Intermediate ITCHING Verified 03/07/18 13:15 - Medications Medications: Current Medications Glipizide (Glucotrol) 5 mg PO BIDAC [facility] Heparin Sodium (Porcine) (Heparin) 5,000 units SC Q8 [facility] Last Admin: 03/07/18 21:19 Dose: 5,000 units Metoprolol Tartrate (Lopressor) 25 mg PO DAILY [facility] Pantoprazole Sodium (Protonix Inj) 40 mg IVP DAILY [facility] Rosuvastatin Calcium (Crestor) 10 mg PO HS [facility] Last Admin: 03/07/18 21:19 Dose: 10 mg Physical Exam - Constitutional Appears: Well, Non-toxic, No Acute Distress, Chronically Ill - Head Exam Head Exam: NORMAL INSPECTION, NORMOCEPHALIC - Eye Exam Eye Exam: EOMI, Normal appearance, PERRL Pupil Exam: NORMAL ACCOMODATION, PERRL - ENT Exam ENT Exam: Mucous Membranes Moist, Normal Exam - Neck Exam Neck exam: Positive for: Normal Inspection - Respiratory Exam Respiratory Exam: Clear to Auscultation Bilateral, NORMAL BREATHING PATTERN - Cardiovascular Exam Cardiovascular Exam: +S1, +S2 - GI/Abdominal Exam GI & Abdominal Exam: Normal Bowel Sounds, Soft, Tenderness (Mild RUQ Tenderness). absent: Distended, Firm, Guarding, Rebound, Rigid Additional comments: Midline Laparotomy incision well healed, RLQ incision well healed, Cholecystostomy tube in place with billious drainage - Extremities Exam Additional comments: Pruritic Rash on LUE and RLE - Neurological Exam Neurological exam: Alert, CN II-XII Intact, Oriented x3 - Skin Skin Exam: Dry, Intact, Normal Color, Warm Results - Vital Signs Recent Vital Signs: Last Vital Signs Temp 97.7 F 03/07/18 16:00 Pulse 90 03/07/18 17:30 Resp 16 03/07/18 16:16 BP 127/70 03/07/18 16:00 Pulse Ox 97 03/07/18 18:47 - Labs Result Diagrams: 03/07/18 13:50 03/07/18 13:50 Labs: Laboratory Results - last 24 hr 03/07/18 03/07/18 03/07/18 13:50 13:50 13:50 WBC 12.6 H RBC 4.70 Hgb 14.7 Hct 43.5 MCV 92.5 MCH 31.2 H MCHC 33.7 RDW 14.2 Plt Count 220 MPV 8.3 Neut % (Auto) 68.5 Lymph % (Auto) 22.2 [place] % (Auto) 5.1 Eos % (Auto) 3.2 Baso % (Auto) 1.0 Neut # (Auto) 8.6 H Lymph # (Auto) 2.8 [place] # (Auto) 0.7 Eos # (Auto) 0.4 Baso # (Auto) 0.1 PT 11.5 INR 1.1 APTT 33 Sodium 142 Potassium 4.8 Chloride 105 Carbon Dioxide 26 Anion Gap 16 BUN 16 Creatinine 0.8 Est GFR ( Amer) > 60 Est GFR (Non-Af Amer) > 60 POC Glucose (mg/dL) Random Glucose 106 Calcium 9.7 Total Bilirubin 0.6 AST 32 ALT 56 Alkaline Phosphatase 101 Troponin I 0.0130 NT-Pro-B Natriuret Pep 802 Total Protein 7.7 Albumin 4.6 Globulin 3.1 Albumin/Globulin Ratio 1.5 Lipase 173 03/07/18 03/07/18 16:57 21:31 WBC RBC Hgb Hct MCV MCH MCHC RDW Plt Count MPV Neut % (Auto) Lymph % (Auto) [place] % (Auto) Eos % (Auto) Baso % (Auto) Neut # (Auto) Lymph # (Auto) [place] # (Auto) Eos # (Auto) Baso # (Auto) PT INR APTT Sodium Potassium Chloride Carbon Dioxide Anion Gap BUN Creatinine Est GFR ( Amer) Est GFR (Non-Af Amer) POC Glucose (mg/dL) 156 H 125 H Random Glucose Calcium Total Bilirubin AST ALT Alkaline Phosphatase Troponin I NT-Pro-B Natriuret Pep Total Protein Albumin Globulin Albumin/Globulin Ratio Lipase Assessment & Plan - Assessment and Plan (Free Text) Assessment: 78 y/o M with PMH of CAD, CHF, AAA, Diabetes, HTN, Nephrolithiasis, BPH, Pancreatitis, PAD presenting s/p cholecystostomy tube placement 5 months ago at [facility]. Plan: - CT showed Proximal AAA 6x6.8 cm in diameter, cholecystectomy tube in place in gallbladder fossa with small amount of surrounding fluid, small left inguinal hernia, prostate enlargement, and postsurgical changes of Lumbar spine. - Order Ultrasound to check for gallstones - Discuss plan with Dr. Yobany Umanzor PGY4
[2018-03-08 00:10] VITALS: RESP 20
[2018-03-08 09:39] VITALS: O2SAT 96
--- NOTE | 2018-03-08 10:51 | US ---
Date of service: 03/08/2018 HISTORY: cholecystostomy tube COMPARISON: Abdomen pelvis CT without contrast 03/07/2018. TECHNIQUE: Sonographic evaluation of the abdomen. FINDINGS: LIVER: Measures 12.2 cm. Mildly diffusely increased echogenicity of the liver parenchyma is suggested. No mass. No intrahepatic bile duct dilatation. GALLBLADDER: Cholecystostomy catheter is identified in situ within the gallbladder lumen, which is collapsed. Intrarenal calculi not excluded. COMMON BILE DUCT: Measures 10.6 mm. No stones. No dilatation. PANCREAS: Pancreas poorly evaluated due to overlying stomach or bowel gas. RIGHT KIDNEY: Measures 11.5cm. There is a 2.6 x 2.4 x 2.7 cm minimally complex cyst identified at the lower pole with a solitary tiny mural nodule. No urolithiasis or obstructive uropathy. No perinephric fluid collection appreciated. LEFT KIDNEY: Measures 11.1cm. There is a 5.6 x 4.6 x 4.0 cm simple cyst identified at the upper pole. No urolithiasis or obstructive uropathy is appreciated or perinephric fluid collection. SPLEEN: Normal in size and contour, 9.9 cm. No mass. AORTA: A fusiform distal abdominal aorta aneurysm (4.8 x 3.5 x 3.1 cm) is reiterated compared to the prior CT examination. Intraluminal linear echoes identify therapeutic aortic stent graft which is better defined in prior CT 03/07/2018 though without contrast. IVC: Unremarkable. OTHER FINDINGS: None. IMPRESSION: 1. Echogenic change within the lumen of the gallbladder reflect cholecystostomy catheter with gallbladder decompressed. Intraluminal calculi are not excluded. Dilated CBD to 10.6 mm without choledocholithiasis. 2. Mild diffuse fatty infiltration liver is suggested or other infiltrative process. 3. Minimally complex right renal cyst and simple cyst left kidney. No obstructive uropathy bilaterally. 4. Infrarenal abdominal aortic aneurysm reiterated with stent graft in situ. Prior CT 03/07/2018 better defines the stent graft.
[2018-03-08] MEDS ORDERED: Perflutren Lipid Microsphere 1.5 ML SUS IV ONE (11:52)
--- NOTE | 2018-03-08 12:26 | CT ---
Date of service: 03/07/2018 PROCEDURE: CT Chest, Abdomen and Pelvis without intravenous contrast HISTORY: cholecystostomy collection COMPARISON: Abdomen pelvis CT without contrast 12/18/2017. TECHNIQUE: Radiation dose: Total exam DLP = 449.35 mGy-cm. This CT exam was performed using one or more of the following dose reduction techniques: Automated exposure control, adjustment of the mA and/or kV according to patient size, and/or use of iterative reconstruction technique. FINDINGS: CT CHEST WITHOUT CONTRAST: LUNGS: Chronic interstitial pulmonary changes appear mild and are peripheral in location with limited honeycombing appreciated. A 3 mm solid noncalcified nodule seen the right apex image 24 series 4, laterally, with the small calcified granuloma identified in the right lower lobe base. No alveolitis bilaterally. Central airways appear clear in general. Note is made of limited mass-effect at the posterior distal trachea just above the level of the evelyn caused by large descending thoracic aortic aneurysm. MEDIASTINUM: The thoracic inlet appears unremarkable. At the upper mediastinum, there is dilatation of the brachycephalic artery up to 1.9 cm. There is extensive thoracic aortic at calcified atherosclerosis an aortic ectasis. The ascending thoracic aorta is mildly dilated to 4.0 cm resuming a normal caliber at the proximal arch. However, there is a descending thoracic aortic aneurysm appears more fusiform than saccular measuring 7.0 x 6.1 cm which impresses the inferior trachea without occluding it and displaces it anteriorly. It terminates at the mid descending thoracic aorta which subsequently measures 3.3 x 3.3 cm. The lack of intravenous contrast limits evaluation of aortic lumen as well as mediastinal anatomy. No gross lymphadenopathy. Extensive coronary artery atherosclerosis appreciated including several coronary artery stent deployment. There is borderline cardiomegaly. PLEURA: Unremarkable. No pneumothorax. No pleural fluid. BONES: Unremarkable. OTHER FINDINGS: None. CT ABDOMEN AND PELVIS: LIVER: Unremarkable. No gross lesion or ductal dilatation. GALLBLADDER AND BILE DUCTS: Cystostomy identified in situ within the gallbladder lumen with the gallbladder completely collapsed. No obvious pericholecystic fluid collection appreciable. There is also a common bile duct stent originating at the gallbladder lumen and terminating in the 2nd portion of the duodenum. PANCREAS: Unremarkable. No gross lesion or ductal dilatation. SPLEEN: Unremarkable. ADRENALS: Unremarkable. No mass. KIDNEYS AND URETERS: A 4.7 x 4.7 cm exophytic cyst seen related to the upper pole left kidney once again with a small cyst identified at the lower pole right kidney measuring 2.5 x 2.2 cm. No obstructive uropathy bilaterally or significant perinephric reactive change. Vascular calcifications are identified in the bilateral renal hilar regions. No definitive intrarenal radiodense calculi. VASCULATURE: Extensive calcified aortic atherosclerosis noted. Patient is seen to be status post aortic iliac raft deployment as therapy for an infrarenal abdominal aortic aneurysm measuring up to 4.2 cm greatest dimension. No acute reactive periaortic changes identified at this time. BOWEL: Stomach is mildly distend with retained food and fluid. No bowel obstruction appreciable. Moderate retained fecal material scattered throughout various large-bowel segments. APPENDIX: Normal appendix. PERITONEUM: Unremarkable. No free fluid. No free air. LYMPH NODES: Unremarkable. No enlarged lymph nodes. BLADDER: Urinary bladder is decompressed and not evaluated adequately. REPRODUCTIVE: Unremarkable. BONES: Patient status post mid to inferior lumbar spinal fusion from L3-S1 by bilateral transpedicular screws and interconnecting rods with prior laminectomies at L2 through L5. No definite acute fracture. OTHER FINDINGS: None. IMPRESSION: 1. Chronic interstitial disease identified diffusely without alveolitis or other definite acute findings. 2. Large proximal descending thoracic aortic aneurysm 7.0 x 6.1 cm. Mild dilatation of the ascending thoracic aorta up to 4.0 cm. 4.2 cm infrarenal abdominal aortic aneurysm with aortic iliac stent graft in situ once again. Extensive calcified aortic atherosclerosis diffusely noted. There are extensive arterial calcification throughout the abdomen and pelvis as well. 3. Prior cholecystostomy in situ as well as biliary stent between the gallbladder cystic duct, common bile duct and 2nd portion duodenum. 4. Bilateral renal cysts. 5. Other lesser findings as discussed above. Lack of contrast agents limits the evaluation.
--- NOTE | 2018-03-08 21:44 | CARD ---
APPROVED REPORT Date of service: 03/07/2018 EKG Measurement Heart [id number] <Conclusion> Normal sinus rhythm Left axis deviation Left ventricular hypertrophy with QRS widening and repolarization abnormality Abnormal ECG
--- NOTE | 2018-03-09 05:18 | CARD ---
APPROVED REPORT Date of service: 03/08/2018 EXAM: Two-dimensional and M-mode echocardiogram with Doppler, color Doppler with contrast. Other Information Quality : GoodRhythm : INDICATION Cardiac Disease: CAD Congestive Heart Failure stents,anemia RISK FACTORS Hypertension Hyperlipidemia Diabetes 2D DIMENSIONS IVSd1.0 (0.7-1.1cm)LVDd6.1 (3.9-5.9cm) PWd0.9 (0.7-1.1cm)LA [id number] (18-58mL) LVDs5.8 (2.5-4.0cm)FS (%) 5.6 % LVEF (%)20.0 (>50%)LVEF (Hernandez's)22.49 % IVC0.00 cm M-Mode DIMENSIONS Left Atrium (MM)2.53 (2.5-4.0cm)Aortic Root3.47 (2.2-3.7cm) Aortic Cusp Exc.2.37 (1.5-2.0cm)LVEF (%)20 (>50%) Aortic Valve AI P 1/2 [id number] Mitral Valve MV E Zfrghodc40.0cm/sE/A ratio0.0 TDI Lateral E' Peak V6.29cm/sMedial E' Peak V3.12cm/sE/Lateral E'15.1 E/Medial E'30.4 Tricuspid Valve TR Peak [id number]/sTR Peak Gr.[id number] LEFT VENTRICLE The Left Ventricle is moderately dilated. There is normal left ventricular wall thickness. Left ventricle systolic function is severely impaired. The Ejection Fraction is 20-25%. There is severe global hypokinesis of the left ventricle. The left ventricular diastolic function is normal. The apical thrombus is small. RIGHT VENTRICLE The right ventricle is normal size. There is normal right ventricular wall thickness. The right ventricular systolic function is normal. ATRIA The left atrium size is normal. The right atrium size is normal. The interatrial septum is intact with no evidence for an atrial septal defect. AORTIC VALVE The aortic valve is normal in structure. There is mild aortic regurgitation. There is no aortic valvular stenosis. There is no aortic valvular vegetation. MITRAL VALVE The mitral valve is normal in structure. There is no evidence of mitral valve prolapse. There is no mitral valve stenosis. Mitral regurgitation is mild. TRICUSPID VALVE The tricuspid valve is normal in structure. There is mild tricuspid regurgitation. Right ventricular systolic pressure is estimated at less than 30 mmHg. There is no pulmonary hypertension. PULMONIC VALVE The pulmonic valve is not well visualized. There is no pulmonic valvular regurgitation. GREAT VESSELS The aortic root is normal in size. PERICARDIAL EFFUSION There is no significant pericardial effusion. <Conclusion> Left ventricle systolic function is severely impaired. The Ejection Fraction is 20-25%. There is severe global hypokinesis of the left ventricle. The apical thrombus is small. SUGGEST IVÁN. There is mild aortic regurgitation. There is mild tricuspid regurgitation. There is no pulmonary hypertension. There is no pulmonic valvular regurgitation.
--- NOTE | 2018-03-09 07:19 | CP.PCM.CON ---
History of Present Illness - History of Present Illness History of Present Illness: 78 year old male with a history of gall stones, biliary stents, and CHF was sent by PMD for evaluation of shortness of breath. Patient reports EF 20%. Denies fever, chest pain, nausea, vomiting, and any other associated symptoms. Chief Complaint (Nursing): Abdominal Pain History Per: Patient History/Exam Limitations: no limitations Current Symptoms Are (Timing): Still Present - Medical History PMH: Anemia, Anxiety, Arthritis, Asthma, CAD, Cardiac Aneurysm (''LOWER ABDOMEN''), Diabetes (NIDDM), Gastritis, HTN, Hypercholesterolemia, Hyperthyroidism, Kidney Stones, Pancreatitis Surgical History: - [facility] Procedures BYPASS L FEM ART TO L FEMOR A WITH AUTOL VN, OPEN APPROACH (03/14/16) CATARAC PHACOEMULS/ASPIR (07/23/14) CONTINUOUS INVASIVE MECHANICAL VENTILATION <96 CONSEC HRS (10/14/14) CONTRAST AORTOGRAM (09/16/14) CONTRAST ARTERIOGRAM-LEG (09/16/14) CORONAR ARTERIOGR-2 CATH (01/04/13) ENDOVASCULAR IMPLANTATION OF OTHER GRAFT IN ABDOMINAL AORTA (10/14/14) EXCISION OF LEFT FEMORAL VEIN, OPEN APPROACH (03/14/16) HEMORRHAGE CONTROL NOS (10/14/14) INSERT ENDOTRACHEAL TUBE (10/14/14) INSERT LENS AT CATAR EXT (07/23/14) LEFT HEART CARDIAC CATH (01/04/13) LT HEART ANGIOCARDIOGRAM (01/04/13) OTHER ENDOVASCULAR PROCEDURES ON OTHER VESSELS (10/30/14) PACKED CELL TRANSFUSION (10/30/14) PROCEDURE ON VESSEL BIFURCATION (10/14/14) REMOVE HEAD/NECK DEV NEC (10/14/14) TRANSFUSE NONAUT RED BLOOD CELLS IN PERIPH VEIN, PERC (03/14/16) VASC SHUNT & BYPASS NEC (10/30/14) VENOUS CATHETERIZATION NEC (10/14/14) Family History: States: Unknown Family Hx - Social History Hx Tobacco Use: No (quit one year ago. Formerly 1/2 ppd for 20 years. ) Hx Alcohol Use: No Hx Substance Use: No - Immunization History Hx Tetanus Toxoid Vaccination: Yes Hx Influenza Vaccination: Yes Hx Pneumococcal Vaccination: Yes Review Of Systems Except As Marked, All Systems Reviewed And Found Negative. Constitutional: Negative for: Fever Cardiovascular: Negative for: Chest Pain Respiratory: Positive for: Shortness of Breath Gastrointestinal: Negative for: Nausea, Vomiting Physical Exam - Physical Exam Appears: Well, Non-toxic, No Acute Distress Skin: Normal Color, Warm, Dry Head: Atraumatic, Normacephalic Eye(s): bilateral: Normal Inspection Oral Mucosa: Moist Neck: Normal ROM, Supple Chest: Symmetrical, No Deformity Cardiovascular: Rhythm Regular, No Murmur Respiratory: Rales (at the bases bilaterally. ), No Rhonchi Gastrointestinal/Abdominal: Normal Exam, Soft, No Tenderness, No Distention, No Guarding, No Rebound, Other (right biliary drainage.) Neurological/Psych: Oriented x3, Normal Speech Past Patient History - Infectious Disease Hx of Infectious Diseases: None - Tetanus Immunizations Tetanus Immunization: Unknown - Past Medical History & Family History Past Medical History?: Yes - Past Social History Smoking Status: Current Some Days Smoker - CARDIAC Hx Hypercholesterolemia: Yes Hx Hypertension: Yes - PULMONARY Hx Asthma: Yes - NEUROLOGICAL Hx Neurological Disorder: No - HEENT Hx HEENT Problems: Yes Hx Cataracts: Yes (b/l cataract surgery) - RENAL Hx Kidney Stones: Yes - ENDOCRINE/METABOLIC Hx Hyperthyroidism: Yes - HEMATOLOGICAL/ONCOLOGICAL Hx Anemia: Yes - INTEGUMENTARY Hx Dermatological Problems: Yes Other/Comment: DRY ITCHING SKIN WITH SOME BROKEN DOWN AREAS, STATES HE SHOWED DOCTOR NO MEDS GIVEN - MUSCULOSKELETAL/RHEUMATOLOGICAL Hx Arthritis: Yes Hx Falls: No - GASTROINTESTINAL Hx Gastritis: Yes Hx Pancreatitis: Yes - GENITOURINARY/GYNECOLOGICAL Hx Genitourinary Disorders: Yes Hx Prostate Problems: Yes (BPH) - PSYCHIATRIC Hx Anxiety: Yes Hx Substance Use: Yes - SURGICAL HISTORY Hx Surgeries: Yes Hx Cataract Extraction: Yes (bilateral) Hx Cardiac Catheterization: Yes (stents) Hx Eye Surgery: Yes Hx Herniorrhaphy: Yes Hx Vascular Surgery: Yes - ANESTHESIA Hx Anesthesia: Yes Hx Anesthesia Reactions: No Hx Malignant Hyperthermia: No Meds Allergies/Adverse Reactions: Allergies Allergy/AdvReac Type Severity Reaction Status Date / Time iodine Allergy Intermediate ITCHING Verified 03/07/18 13:15 Penicillins Allergy Intermediate ITCHING Verified 03/07/18 13:15 - Medications Medications: Current Medications Acetaminophen (Tylenol 325mg Tab) 650 mg PO Q6 PRN PRN Reason: Pain, Mild (1-3) Last Admin: 03/08/18 23:58 Dose: 650 mg Aspirin (Ecotrin) 81 mg PO DAILY [facility] Last Admin: 03/08/18 10:09 Dose: 81 mg Glipizide (Glucotrol) 5 mg PO BIDAC [facility] Last Admin: 03/08/18 17:08 Dose: Not Given Heparin Sodium (Porcine) (Heparin) 5,000 units SC Q8 [facility] Last Admin: 03/09/18 06:15 Dose: Not Given Metoprolol Tartrate (Lopressor) 25 mg PO DAILY [facility] Last Admin: 03/08/18 10:09 Dose: 25 mg Pantoprazole Sodium (Protonix Inj) 40 mg IVP DAILY [facility] Last Admin: 03/08/18 10:09 Dose: 40 mg Rosuvastatin Calcium (Crestor) 10 mg PO HS [facility] Last Admin: 03/08/18 21:28 Dose: Not Given Results - Vital Signs Recent Vital Signs: Last Vital Signs Temp 98.1 F 03/09/18 04:17 Pulse 76 03/09/18 04:17 Resp 20 03/09/18 04:17 BP 145/76 03/09/18 04:17 Pulse Ox 96 03/09/18 04:17 - Labs Result Diagrams: 03/07/18 13:50 03/07/18 13:50 Labs: Laboratory Results - last 24 hr 03/08/18 16:55 POC Glucose (mg/dL) 131 H Assessment & Plan - Assessment and Plan (Free Text) Assessment: 78 y/o M with PMH of CAD, CHF, AAA, Diabetes, HTN, Nephrolithiasis, BPH, Pancreatitis, PAD presenting s/p cholecystostomy tube placement 5 months ago at [facility]. Plan: - CT showed Proximal AAA 6x6.8 cm in diameter, cholecystectomy tube in place in gallbladder fossa with small amount of surrounding fluid, small left inguinal hernia, prostate enlargement, and postsurgical changes of Lumbar spine. - Order Ultrasound to check for gallstones Patient admitted for cholecystectomy cardiomyopathy with low EF (<20%) Descending thoracic aortic aneurysm Considered high irsk for Cholecystectomy but if the bebefit outwieghs the risk please proceed with the surgery Other tate just remove the drainage tube plus medical management Descending Thoracic aneurysm: Mgt as per dr. Haywood
[2018-03-09 08:46] VITALS: PULSE 71; TEMP 97
--- NOTE | 2018-03-09 09:37 | CP.PCM.PN ---
Subjective - Date & Time of Evaluation Date of Evaluation: 03/08/18 Time of Evaluation: 16:00 Objective - Vital Signs/Intake and Output Vital Signs (last 24 hours): Temp Pulse Resp BP Pulse Ox 97.0 F L 71 20 124/80 96 03/09/18 07:30 03/09/18 07:30 03/09/18 07:30 03/09/18 07:30 03/09/18 07:30 Intake and Output: 03/09/18 03/09/18 06:59 18:59 Intake Total 550 Output Total 295 Balance 255 - Medications Medications: Current Medications Acetaminophen (Tylenol 325mg Tab) 650 mg PO Q6 PRN PRN Reason: Pain, Mild (1-3) Last Admin: 03/08/18 23:58 Dose: 650 mg Aspirin (Ecotrin) 81 mg PO DAILY [facility] Last Admin: 03/08/18 10:09 Dose: 81 mg Glipizide (Glucotrol) 5 mg PO BIDAC [facility] Last Admin: 03/09/18 08:32 Dose: 5 mg Heparin Sodium (Porcine) (Heparin) 5,000 units SC Q8 [facility] Last Admin: 03/09/18 06:15 Dose: Not Given Metoprolol Tartrate (Lopressor) 25 mg PO DAILY [facility] Last Admin: 03/08/18 10:09 Dose: 25 mg Pantoprazole Sodium (Protonix Inj) 40 mg IVP DAILY [facility] Last Admin: 03/08/18 10:09 Dose: 40 mg Rosuvastatin Calcium (Crestor) 10 mg PO HS [facility] Last Admin: 03/08/18 21:28 Dose: Not Given - Labs Labs: 03/07/18 13:50 03/07/18 13:50 PT 11.5 SECONDS (9.7-12.2) 03/07/18 13:50 INR 1.1 03/07/18 13:50 APTT 33 SECONDS (21-34) 03/07/18 13:50
[2018-03-09 10:36] VITALS: BP 133/75
--- NOTE | 2018-03-09 12:21 | CP.PCM.PN ---
Subjective - Date & Time of Evaluation Date of Evaluation: 03/09/18 Time of Evaluation: 06:20 - Subjective Subjective: surgery progress note for Dr. Haywood Patient examined at bedside. No acute events overnight. Patient reports his cholecystostomy tube was put in 5 months ago, and is productive of lots of dark bilious fluid. Patient is unsure if he wants to have his gallbladder removed or just the drain; he reports he is willing to do whatever the doctors suggest is best. Denies chest pain, SOB, abdominal pain, nausea, diarrhea. Objective - Vital Signs/Intake and Output Vital Signs (last 24 hours): Temp Pulse Resp BP Pulse Ox 97.0 F L 71 20 133/75 96 03/09/18 07:30 03/09/18 07:30 03/09/18 07:30 03/09/18 10:36 03/09/18 07:30 Intake and Output: 03/09/18 03/09/18 06:59 18:59 Intake Total 550 Output Total 295 Balance 255 - Medications Medications: Current Medications Acetaminophen (Tylenol 325mg Tab) 650 mg PO Q6 PRN PRN Reason: Pain, Mild (1-3) Last Admin: 03/08/18 23:58 Dose: 650 mg Aspirin (Ecotrin) 81 mg PO DAILY [facility] Last Admin: 03/09/18 10:36 Dose: 81 mg Glipizide (Glucotrol) 5 mg PO BIDAC [facility] Last Admin: 03/09/18 08:32 Dose: 5 mg Heparin Sodium (Porcine) (Heparin) 5,000 units SC Q8 [facility] Last Admin: 03/09/18 06:15 Dose: Not Given Metoprolol Tartrate (Lopressor) 25 mg PO DAILY [facility] Last Admin: 03/09/18 10:36 Dose: 25 mg Pantoprazole Sodium (Protonix Inj) 40 mg IVP DAILY [facility] Last Admin: 03/09/18 10:36 Dose: 40 mg Rosuvastatin Calcium (Crestor) 10 mg PO HS [facility] Last Admin: 03/08/18 21:28 Dose: Not Given - Labs Labs: 03/07/18 13:50 03/07/18 13:50 PT 11.5 SECONDS (9.7-12.2) 03/07/18 13:50 INR 1.1 03/07/18 13:50 APTT 33 SECONDS (21-34) 03/07/18 13:50 - Constitutional Appears: Non-toxic, No Acute Distress - Head Exam Head Exam: ATRAUMATIC, NORMAL INSPECTION, NORMOCEPHALIC - Eye Exam Eye Exam: EOMI, Normal appearance - ENT Exam ENT Exam: Mucous Membranes Moist, Normal Exam - Neck Exam Neck Exam: Normal Inspection - Respiratory Exam Respiratory Exam: NORMAL BREATHING PATTERN. absent: Respiratory Distress - Cardiovascular Exam Cardiovascular Exam: REGULAR RHYTHM. absent: Tachycardia - GI/Abdominal Exam GI & Abdominal Exam: Soft. absent: Distended, Tenderness Additional comments: cholecystostomy tube in place, draining dark bilious fluid. - Extremities Exam Extremities Exam: Normal Inspection. absent: Calf Tenderness - Neurological Exam Neurological Exam: Alert, Awake, Oriented x3 - Psychiatric Exam Psychiatric exam: Normal Affect, Normal Mood - Skin Skin Exam: Dry, Normal Color, Warm Assessment and Plan - Assessment and Plan (Free Text) Assessment: 78 year old male with cholecystostomy tube placed 5 months ago Plan: -cholecystostomy tube in decompressed gallbladder ([place]) -Cardiology recommends against cholecystectomy based on patient's poor cardiac status (EF~20%), and AAA (6x6.8cm) -plan to pull cholecystostomy tube today -biliary stent to be removed by GI -medical management per primary Discussed with Dr. Yobany Langford, PGY-1
== END 2018-03-09 18:23 | disposition left against medical advice (07) | DRG 293 ==
LOC: C.ER 13:04 → C.6T 14:33
PROVIDERS: ADMIT Internal Medicine; ATTEND Internal Medicine
DX: I11.0 Hypertensive heart disease with heart failure (principal); I25.10 Atherosclerotic heart disease of native coronary artery without angina pectoris; F17.200 Nicotine dependence, unspecified, uncomplicated; E11.51 Type 2 diabetes mellitus with diabetic peripheral angiopathy without gangrene; J45.909 Unspecified asthma, uncomplicated; N40.0 Benign prostatic hyperplasia without lower urinary tract symptoms; Z86.79 Personal history of other diseases of the circulatory system; Z98.42 Cataract extraction status, left eye; K59.00 Constipation, unspecified; I50.9 Heart failure, unspecified; Z79.02 Long term (current) use of antithrombotics/antiplatelets; E78.00 Pure hypercholesterolemia, unspecified

== ENCOUNTER 2018-04-03 11:35 | Emergency (ER) | payer MEDICARE ==
[2018-04-03 11:35] VITALS: BMI 24.3
[2018-04-03 12:04] VITALS: TEMP 97.8
[2018-04-03 13:12] LABS: BASO # 0.1 K/uL (0.0-0.2); BASO % 0.8 % (0.0-2.0); EOS # 0.2 K/uL (0.0-0.7); EOS % 2.4 % (0.0-4.0); HEMOGLOBIN 13.1 g/dL (12.0-18.0); LYMPH # 2.1 K/uL (1.0-4.3); LYMPH % 23.4 % (20.0-40.0); MEAN CELL VOLUME 93.1 fL (80.0-94.0); MEAN CORPUSCULAR HEMOGLOBIN 31.4 pg (27.0-31.0); MEAN CORPUSCULAR HGB CONC 33.7 g/dL (33.0-37.0); MEAN PLATELET VOLUME 8.8 fL (7.2-11.7); MONO # 0.5 K/uL (0.0-0.8); MONO % 5.4 % (0.0-10.0); NEUT # 6.1 K/uL (1.8-7.0); NRBC % 0.1 % (0.0-2.0); RBC 4.18 Mil/uL (4.40-5.90)
--- NOTE | 2018-04-03 13:24 | C.PDOC ---
History Of Present Illness 78 y/o male with history of cardiac aneurysm and stent presents to ED with c/o intermittent non radiating left sided chest pain "for weeks". Patient also c/o right lower back pain radiating to right leg worse when walking. Patient denies sob, nausea, dizziness, bowel/bladder incontinence, change in sensation to right leg, dysuria, hematuria or any other complaints at this time. Time Seen by Provider: 04/03/18 11:53 Chief Complaint (Nursing): Chest Pain History Per: Patient History/Exam Limitations: no limitations Onset/Duration Of Symptoms: Days, Intermittent Episodes Current Symptoms Are (Timing): Still Present Past Medical History Reviewed: Historical Data, Nursing Documentation, Vital Signs Vital Signs: Last Vital Signs Temp 97.8 F 04/03/18 11:53 Pulse 83 04/03/18 11:53 Resp 18 04/03/18 11:53 BP 109/66 04/03/18 11:53 Pulse Ox 95 04/03/18 11:53 - Medical History PMH: Anemia, Anxiety, Arthritis, Asthma, CAD, Cardiac Aneurysm (''LOWER ABDOMEN''), Diabetes (NIDDM), Gastritis, HTN, Hypercholesterolemia, Hype rthyroidism, Kidney Stones, Pancreatitis Surgical History: No Surg Hx - [facility] Procedures BYPASS L FEM ART TO L FEMOR A WITH AUTOL VN, OPEN APPROACH (03/14/16) CATARAC PHACOEMULS/ASPIR (07/23/14) CONTINUOUS INVASIVE MECHANICAL VENTILATION <96 CONSEC HRS (10/14/14) CONTRAST AORTOGRAM (09/16/14) CONTRAST ARTERIOGRAM-LEG (09/16/14) CORONAR ARTERIOGR-2 CATH (01/04/13) ENDOVASCULAR IMPLANTATION OF OTHER GRAFT IN ABDOMINAL AORTA (10/14/14) EXCISION OF LEFT FEMORAL VEIN, OPEN APPROACH (03/14/16) HEMORRHAGE CONTROL NOS (10/14/14) INSERT ENDOTRACHEAL TUBE (10/14/14) INSERT LENS AT CATAR EXT (07/23/14) LEFT HEART CARDIAC CATH (01/04/13) LT HEART ANGIOCARDIOGRAM (01/04/13) OTHER ENDOVASCULAR PROCEDURES ON OTHER VESSELS (10/30/14) PACKED CELL TRANSFUSION (10/30/14) PROCEDURE ON VESSEL BIFURCATION (10/14/14) REMOVE HEAD/NECK DEV NEC (10/14/14) TRANSFUSE NONAUT RED BLOOD CELLS IN PERIPH VEIN, PERC (03/14/16) VASC SHUNT & BYPASS NEC (10/30/14) VENOUS CATHETERIZATION NEC (10/14/14) Family History: States: No Known Family Hx - Social History Hx Tobacco Use: No (quit one year ago. Formerly 1/2 ppd for 20 years. ) Hx Alcohol Use: Yes (socially) Hx Substance Use: No - Immunization History Hx Tetanus Toxoid Vaccination: Yes Hx Influenza Vaccination: Yes Hx Pneumococcal Vaccination: Yes Review Of Systems Except As Marked, All Systems Reviewed And Found Negative. Cardiovascular: Positive for: Chest Pain. Negative for: Palpitations Gastrointestinal: Negative for: Nausea, Vomiting Genitourinary: Negative for: Dysuria, Incontinence, Hematuria Musculoskeletal: Positive for: Back Pain, Leg Pain Physical Exam - Physical Exam Additional Physical Exam Comments: Constitutional: No acute distress. Head: Normocephalic. Atraumatic. Eyes: PERRL. ENT: Moist mucous membranes. Neck: Supple. Cardiovascular: Regular rate. Radial pulse 2+ bilaterally. Chest: No tenderness. Respiratory: Clear to auscultation bilaterally. GI: Soft. Nontender. Nondistended. Back: No CVA tenderness. Musculoskeletal: No tenderness or swelling of extremities. Skin: No rash. Neurologic: Alert, no focal deficit. ED Course And Treatment - Laboratory Results Result Diagrams: 04/03/18 13:09 04/03/18 13:09 ECG: Interpreted By Me, Viewed By Me ECG Rhythm: Sinus Rhythm Rate From EC (BPM) O2 Sat by Pulse Oximetry: 95 (RA) Pulse Ox Interpretation: Normal Medical Decision Making Medical Decision Making: Plan: ECG, CXR, Blood work ordered. ECG: NSR @80BPM, No ST elevations, PVCs CXR IMPRESSION: The proximal descending thoracic aortic aneurysm has been previously referenced on the prior CT report. Please note that report this aneurysmal prominent appears similar on the frontal and lateral views with the prior 12/18/2017 study and also a similar on the lateral view dated 03/03/2016. perifissural ill-defined nodular opacity is concerning for neoplasm. Comment: This concern for right lung perifissural lung neoplastic mass was conveyed to the ER physician, Dr. Yeh as well on 04/03/2018 at approximately 01:[address] Francis of lungs findings. Dr. Hood will evaluate further as inpatie nt for patient's known thoracic aneurysm with elevated CHF and ongoing chest pain with known ACS. Disposition Discussed With .: Jose Angel Hood Doctor Will See Patient In The: Hospital - Disposition Disposition: HOSPITALIZED Disposition Time: 14:08 Condition: GUARDED Forms: [facility] (Italian) - Clinical Impression Clinical Impression: CAD (coronary artery disease), CHF (congestive heart failure), Chest pain, Lung mass - Scribe Statement The provider has reviewed the documentation as recorded by the Baudilio Stern All medical record entries made by the Baudilio were at my direction and personally dictated by me. I have reviewed the chart and agree that the record accurately reflects my personal performance of the history, physical exam, medical decision making, and the department course for this patient. I have also personally directed, reviewed, and agree with the discharge instructions and disposition.
--- NOTE | 2018-04-03 13:30 | RAD ---
Date of service: 04/03/2018 HISTORY: chest pain COMPARISON: 03/07/2018 chest x-ray. CT chest abdomen and pelvis 03/07/2018 noted. 03/03/2016 TECHNIQUE: Chest PA and lateral FINDINGS: LUNGS: Vague nodular opacity mid lung zone bordering the right wallace fissural- neoplasm here needs to be considered. PLEURA: No significant pleural effusion identified. No pneumothorax apparent. CARDIOVASCULAR: There is presence of aortic atherosclerotic calcification on x-ray. Prominent tortuosity/ectasia of the thoracic aorta-is hree noted-known descending thoracic aortic aneurysm Mild cardiomegaly-similar. No significant appearing pulmonary venous congestion. OSSEOUS STRUCTURES: Thoracic spondylosis. VISUALIZED UPPER ABDOMEN: Normal. OTHER FINDINGS: None. IMPRESSION: The proximal descending thoracic aortic aneurysm has been previously referenced on the prior CT report. Please note that report this aneurysmal prominent appears similar on the frontal and lateral views with the prior 12/18/2017 study and also a similar on the lateral view dated 03/03/2016. perifissural ill-defined nodular opacity is concerning for neoplasm. Comment: This concern for right lung perifissural lung neoplastic mass was conveyed to the ER physician, Dr. Yeh as well on 04/03/2018 at approximately 01:15 p.m.
[2018-04-03 13:38] LABS: CK-MB 0.72 ng/mL (0.0-3.38)
[2018-04-03 13:39] LABS: B-TYPE NATRIURETIC PEPTIDE 1360 pg/mL (0-900)
[2018-04-03 14:04] LABS: ALB/GLOB RATIO 1.4 (1.0-2.1); ALBUMIN 3.9 g/dL (3.5-5.0); BLOOD UREA NITROGEN 19 mg/dL (9-20); GFR NON-AFRICAN AMERICAN > 60
[2018-04-03 14:05] LABS: ALT/SGPT 29 U/L (21-72); AST/SGOT 24 U/L (17-59)
[2018-04-03 17:51] VITALS: BP 113/60; PULSE 68; RESP 15; O2SAT 97
--- NOTE | 2018-04-03 19:34 | CP.PCM.HP ---
History of Present Illness - History of Present Illness History of Present Illness: 8 y/o male with history of cardiac aneurysm and stent presents to ED with c/o intermittent non radiating left sided chest pain "for weeks". Patient also c/o right lower back pain radiating to right leg worse when walking. Patient denies sob, nausea, dizziness, bowel/bladder incontinence, change in sensation to right leg, dysuria, hematuria or any other complaints at this time. Present on Admission - Present on Admission Any Indicators Present on Admission: No Review of Systems - Constitutional Constitutional: absent: As Per HPI, Anorexia, Chills, Daytime Sleepiness, Excessive Sweating, Fatigue, Fever, Frequent Falls, Headache, Increased Appetite, Lethargy, Malaise, Night Sweats, Snoring, Sleep Apnea, Weight Gain, Weight Loss, Weakness, Other - EENT Eyes: absent: As Per HPI, Blind Spots, Blurred Vision, Change in Vision, Decreased Night Vision, Diplopia, Discharge, Dry Eye, Exophthalmos, Floaters, Irritation, Itchy Eyes, Loss of Peripheral Vision, Pain, Photophobia, Requires Corrective Lenses, Sees Flashes, Spots in Vision, Tunnel Vision, Other Visual Disturbances, Loss of Vision, Other Ears: absent: As Per HPI, Decreased Hearing, Ear Discharge, Ear Pain, Tinnitus, Abnormal Hearing, Disequilibrium, Dizziness, Other Nose/Mouth/Throat: absent: As Per HPI, Epistaxis, Nasal Congestion, Nasal Disch arge, Nasal Obstruction, Nasal Trauma, Nose Pain, Post Nasal Drip, Sinus Pain, Sinus Pressure, Bleeding Gums, Change in Voice, Dental Pain, Dry Mouth, Dysphagia, Halitosis, Hoarsness, Lip Swelling, Mouth Lesions, Mouth Pain, Odynophagia, Sore Throat, Throat Swelling, Tongue Swelling, Facial Pain, Neck Pain, Neck Mass, Other - Cardiovascular Cardiovascular: Chest Pain, Claudication, Dyspnea, Dyspnea on Exertion - Respiratory Respiratory: absent: As Per HPI, Cough, Dyspnea, Hemoptysis, Dyspnea on Exertion, Wheezing, Snoring, Stridor, Pain on Inspiration, Chest Congestion, Excessive Mucous Production, Change in Mucous Color, Pain with Coughing, Other - Gastrointestinal Gastrointestinal: absent: As Per HPI, Abdominal Pain, Belching, Bloating, Change in Bowel Habits, Change in Stool Character, Coffee Ground Emesis, Constipation, Cramping, Diarrhea, Dyspepsia, Dysphagia, Early Satiety, Excessive Flatus, Fecal Incontinence, Heartburn, Hematemesis, Hematochezia, Loose Stools, Melena, Nausea, Odynophagia, Temesmus, Vomiting, Other - Genitourinary Genitourinary: absent: As Per HPI, Change in Urinary Stream, Difficulty Urinating, Dysuria, Flank Pain, Hematuria, Pyuria, Nocturia, Urinary Incontinence, Urinary Frequency, Urinary Hesitance, Urinary Urgency, Voiding Freq/Small Amts, Freq UTI, Hx Renal/Bladder Calculi, Hx /Renal Surgery, Bladder Distension, Other - Musculoskeletal Musculoskeletal: absent: As Per HPI, Abnormal Gait, Arthralgias, Atrophy, Back Pain, Deformity, Joint Swelling, Limited Range of Motion, Loss of Height, Muscle Cramps, Muscle Weakness, Myalgias, Neck Pain, Numbness, Radiating Pain into Limb, Stiffness, Tingling, Other - Integumentary Integumentary: absent: As Per HPI, Acne, Alopecia, Bleeding Lesions, Change in Hair, Change in Nails, Change in Pigmentation, Changing Lesions, Dry Skin, Erythema, Furuncle, Hirsutism, Lesions, New Lesions, Non-Healing Lesions, Photosensitivity, Pruritus, Rash, Skin Pain, Skin Ulcer, Sores, Striae, Swelling, Unusual Bruising, Wounds, Jaundice, Other Past Patient History - Infectious Disease Hx of Infectious Diseases: None - Tetanus Immunizations Tetanus Immunization: Unknown - Past Medical History & Family History Past Medical History?: Yes - Past Social History Smoking Status: Light Smoker < 10 Cigarettes Daily - CARDIAC Hx Hypercholesterolemia: Yes Hx Hypertension: Yes - PULMONARY Hx Asthma: Yes - NEUROLOGICAL Hx Neurological Disorder: No - HEENT Hx HEENT Problems: Yes Hx Cataracts: Yes (b/l cataract surgery) - RENAL Hx Kidney Stones: Yes - ENDOCRINE/METABOLIC Hx Hyperthyroidism: Yes - HEMATOLOGICAL/ONCOLOGICAL Hx Anemia: Yes - INTEGUMENTARY Hx Dermatological Problems: Yes Other/Comment: DRY ITCHING SKIN WITH SOME BROKEN DOWN AREAS, STATES HE SHOWED DOCTOR NO MEDS GIVEN - MUSCULOSKELETAL/RHEUMATOLOGICAL Hx Arthritis: Yes - GASTROINTESTINAL Hx Gastritis: Yes Hx Pancreatitis: Yes - GENITOURINARY/GYNECOLOGICAL Hx Genitourinary Disorders: Yes Hx Prostate Problems: Yes (BPH) - PSYCHIATRIC Hx Anxiety: Yes Hx Substance Use: No - SURGICAL HISTORY Hx Surgeries: Yes Hx Cataract Extraction: Yes (bilateral) Hx Cardiac Catheterization: Yes (stents) Hx Eye Surgery: Yes Hx Herniorrhaphy: Yes Hx Vascular Surgery: Yes - ANESTHESIA Hx Anesthesia: Yes Hx Anesthesia Reactions: No Hx Malignant Hyperthermia: No Meds Allergies/Adverse Reactions: Allergies Allergy/AdvReac Type Severity Reaction Status Date / Time iodine Allergy Intermediate ITCHING Verified 03/07/18 13:15 Penicillins Allergy Intermediate ITCHING Verified 03/07/18 13:15 Physical Exam - Constitutional Appears: Well - Head Exam Head Exam: ATRAUMATIC, NORMAL INSPECTION, NORMOCEPHALIC - Eye Exam Eye Exam: EOMI, Normal appearance, PERRL - Neck Exam Neck exam: Positive for: Full Rom - Respiratory Exam Respiratory Exam: NORMAL BREATHING PATTERN - Cardiovascular Exam Cardiovascular Exam: REGULAR RHYTHM, +S1, +S2 - GI/Abdominal Exam GI & Abdominal Exam: Normal Bowel Sounds, Soft. absent: Tenderness - Rectal Exam Rectal Exam: NORMAL INSPECTION - Extremities Exam Extremities exam: Positive for: normal inspection - Back Exam Back exam: NORMAL INSPECTION - Neurological Exam Neurological exam: Alert, CN II-XII Intact, Normal Gait, Oriented x3, Reflexes Normal Results - Vital Signs Recent Vital Signs: Last Vital Signs Temp 97.8 F 04/03/18 11:53 Pulse 68 04/03/18 17:51 Resp 15 04/03/18 17:51 BP 113/60 04/03/18 17:51 Pulse Ox 97 04/03/18 17:51 - Labs Result Diagrams: 04/03/18 13:09 04/03/18 13:09 Labs: Laboratory Results - last 24 hr 04/03/18 04/03/18 13:09 13:09 WBC 9.0 RBC 4.18 L Hgb 13.1 Hct 38.9 MCV 93.1 MCH 31.4 H MCHC 33.7 RDW 14.0 Plt Count 202 MPV 8.8 Neut % (Auto) 68.0 Lymph % (Auto) 23.4 Weber % (Auto) 5.4 Eos % (Auto) 2.4 Baso % (Auto) 0.8 Neut # (Auto) 6.1 Lymph # (Auto) 2.1 Weber # (Auto) 0.5 Eos # (Auto) 0.2 Baso # (Auto) 0.1 Sodium 140 Potassium 4.0 Chloride 103 Carbon Dioxide 27 Anion Gap 14 BUN 19 Creatinine 0.8 Est GFR ( Amer) > 60 Est GFR (Non-Af Amer) > 60 Random Glucose 100 Calcium 9.0 Total Bilirubin 0.4 AST 24 ALT 29 Alkaline Phosphatase 74 Total Creatine Kinase 53 L CK-MB (Mass) 0.72 Troponin I 0.0150 NT-Pro-B Natriuret Pep 1360 H Total Protein 6.6 Albumin 3.9 Globulin 2.8 Albumin/Globulin Ratio 1.4 Assessment & Plan (1) AAA (abdominal aortic aneurysm) Status: Acute (2) Chest pain Status: Chronic (3) Hyperlipidemia Status: Chronic (4) Nephrolithiasis Status: Chronic (5) PVD (peripheral vascular disease) with claudication Status: Chronic
--- NOTE | 2018-04-03 19:37 | CP.PCM.DIS ---
Provider - Provider Date of Admission: 04/03/18 15:49 Attending physician: Inocencio Francis MD Consults: 04/03/18 15:57 Cardiology Consult Stat Comment: Consulting Provider: Jose Angel Hood Consulting Physician: Jose Angel Hood Reason for Consult: chest pain Time Spent in preparation of Discharge (in minutes): 20 Diagnosis - Discharge Diagnosis (1) AAA (abdominal aortic aneurysm) Status: Acute (2) Chest pain Status: Chronic (3) Hyperlipidemia Status: Chronic (4) Nephrolithiasis Status: Chronic (5) PVD (peripheral vascular disease) with claudication Status: Chronic Hospital Course - Lab Results Lab Results: Most Recent Lab Values WBC 9.0 K/uL (4.8-10.8) 04/03/18 13:09 RBC 4.18 Mil/uL (4.40-5.90) L 04/03/18 13:09 Hgb 13.1 g/dL (12.0-18.0) 04/03/18 13:09 Hct 38.9 % (35.0-51.0) 04/03/18 13:09 MCV 93.1 fL (80.0-94.0) 04/03/18 13:09 MCH 31.4 pg (27.0-31.0) H 04/03/18 13:09 MCHC 33.7 g/dL (33.0-37.0) 04/03/18 13:09 RDW 14.0 % (11.5-14.5) 04/03/18 13:09 Plt Count 202 K/uL (130-400) 04/03/18 13:09 MPV 8.8 fL (7.2-11.7) 04/03/18 13:09 Neut % (Auto) 68.0 % (50.0-75.0) 04/03/18 13:09 Lymph % (Auto) 23.4 % (20.0-40.0) 04/03/18 13:09 [place] % (Auto) 5.4 % (0.0-10.0) 04/03/18 13:09 Eos % (Auto) 2.4 % (0.0-4.0) 04/03/18 13:09 Baso % (Auto) 0.8 % (0.0-2.0) 04/03/18 13:09 Neut # (Auto) 6.1 K/uL (1.8-7.0) 04/03/18 13:09 Lymph # (Auto) 2.1 K/uL (1.0-4.3) 04/03/18 13:09 [place] # (Auto) 0.5 K/uL (0.0-0.8) 04/03/18 13:09 Eos # (Auto) 0.2 K/uL (0.0-0.7) 04/03/18 13:09 Baso # (Auto) 0.1 K/uL (0.0-0.2) 04/03/18 13:09 Sodium 140 mmol/L (132-148) 04/03/18 13:09 Potassium 4.0 mmol/L (3.6-5.2) 04/03/18 13:09 Chloride 103 mmol/L (98-107) 04/03/18 13:09 Carbon Dioxide 27 mmol/L (22-30) 04/03/18 13:09 Anion Gap 14 (10-20) 04/03/18 13:09 BUN 19 mg/dL (9-20) 04/03/18 13:09 Creatinine 0.8 mg/dL (0.8-1.5) 04/03/18 13:09 Est GFR ( Amer) > 60 04/03/18 13:09 Est GFR (Non-Af Amer) > 60 04/03/18 13:09 Random Glucose 100 mg/dL (75-110) 04/03/18 13:09 Calcium 9.0 mg/dl (8.6-10.4) 04/03/18 13:09 Total Bilirubin 0.4 mg/dL (0.2-1.3) 04/03/18 13:09 AST 24 U/L (17-59) 04/03/18 13:09 ALT 29 U/L (21-72) 04/03/18 13:09 Alkaline Phosphatase 74 U/L (38-126) 04/03/18 13:09 Total Creatine Kinase 53 U/L (55-170) L 04/03/18 13:09 CK-MB (Mass) 0.72 ng/mL (0.0-3.38) 04/03/18 13:09 Troponin I 0.0150 ng/mL (0.00-0.120) 04/03/18 13:09 NT-Pro-B Natriuret Pep 1360 pg/mL (0-900) H 04/03/18 13:09 Total Protein 6.6 g/dL (6.3-8.3) 04/03/18 13:09 Albumin 3.9 g/dL (3.5-5.0) 04/03/18 13:09 Globulin 2.8 gm/dL (2.2-3.9) 04/03/18 13:09 Albumin/Globulin Ratio 1.4 (1.0-2.1) 04/03/18 13:09 - Hospital Course Hospital Course: Patient stayed in the hospital for to 3 hours and patient walked out of the emergency room without the knowledge of the staff. Will contact the patient's cardiology and inform him of the events. Discharge Exam - Head Exam Head Exam: ATRAUMATIC, NORMAL INSPECTION, NORMOCEPHALIC Discharge Plan - Follow Up Plan Condition: GUARDED Disposition: HOME/ ROUTINE
--- NOTE | 2018-04-04 11:48 | CARD ---
APPROVED REPORT Date of service: 04/03/2018 EKG Measurement Heart [id number] <Conclusion> Sinus rhythm with frequent premature ventricular complexes Left axis deviation Left ventricular hypertrophy with QRS widening and repolarization abnormality Abnormal ECG
== END 2018-04-03 18:30 | disposition left against medical advice (07) ==
LOC: C.ER 11:35 → C.9E 15:49 → UNDOADMIN 15:49 → C.6T 18:23 → C.9E 18:23 → C.ER 18:30 → C.6T 18:47 → C.9E 18:47 → UNDODISIN 19:27
DX: I25.10 Atherosclerotic heart disease of native coronary artery without angina pectoris (principal); I11.0 Hypertensive heart disease with heart failure; I50.9 Heart failure, unspecified; R07.9 Chest pain, unspecified; R91.8 Other nonspecific abnormal finding of lung field; I71.4 Abdominal aortic aneurysm, without rupture; E78.5 Hyperlipidemia, unspecified; N20.0 Calculus of kidney; I73.9 Peripheral vascular disease, unspecified; F17.210 Nicotine dependence, cigarettes, uncomplicated

== ENCOUNTER 2018-06-01 13:53 | Emergency (ER) | payer MEDICARE ==
[2018-06-01 13:54] VITALS: BMI 24.3
[2018-06-01 14:01] VITALS: RESP 20
[2018-06-01 15:22] LABS: SQUAMOUS EPITHIAL < 1 /hpf (0-5); URINE BILIRUBIN NEGATIVE (NEGATIVE); URINE BLOOD 2+ (NEGATIVE); URINE CLARITY Clear (Clear); URINE COLOR Yellow (YELLOW); URINE GLUCOSE (UA) NORMAL (Normal); URINE LEUKOCYTE ESTERASE NEG Leu/uL (Negative); URINE PROTEIN 1+ mg/dL (NEGATIVE)
--- NOTE | 2018-06-01 16:34 | US ---
Date of service: 06/01/2018 HISTORY: testicular pain - r/o torsion TECHNIQUE: Realtime sonography through the scrotum with color and doppler flow. COMPARISON: None Available. FINDINGS: RIGHT TESTICLE: Measures 3.6 x 1.4 x 2.7 cm. Homogeneous echotexture. No mass. Normal flow demonstrated. RIGHT EPIDIDYMIS: Normal size, morphology and vascularity. Epididymal cyst, 2 mm. LEFT TESTICLE: Measures 3.8 x 1.4 x 2.8 cm. Homogeneous echotexture. Normal flow. No mass. Incidentally noted prominent rete testis. LEFT EPIDIDYMIS: Large left spermatocele, 2.2 x 1.4 by 2.5 cm. Epididymal cyst, 9 x 9 x 11 mm. Normal flow. HYDROCELE: Mild complex left hydrocele. VARICOCELE: None. OTHER FINDINGS: None. IMPRESSION: No evidence of testicular torsion or epididymo-orchitis.Small bilateral epididymal cysts. Large left spermatocele. Mild complex left hydrocele
[2018-06-01 17:04] VITALS: BP 158/80; PULSE 85; TEMP 97.5; O2SAT 100
--- NOTE | 2018-06-01 18:07 | C.PDOC ---
History Of Present Illness 78yo male, comes to ER for evaluation of testicular pain x 3 days and left calf pain x 1 day. He also reports mild swelling in his left calf, associated with the pain. He denies any trauma or injuries to the site. Patient denies any chest pain, shortness of breath, hematuria, dysuria, and offers no additional complaints. Time Seen by Provider: 06/01/18 14:07 Chief Complaint (Nursing): Male Genitourinary History Per: Patient History/Exam Limitations: no limitations Additional History Per: Patient Past Medical History Reviewed: Historical Data, Nursing Documentation, Vital Signs Vital Signs: Last Vital Signs Temp 97.5 F L 06/01/18 17:00 Pulse 85 06/01/18 17:00 Resp 20 06/01/18 17:00 BP 158/80 H 06/01/18 17:00 Pulse Ox 100 06/01/18 17:00 - Medical History PMH: Anemia, Anxiety, Arthritis, Asthma, CAD, Cardiac Aneurysm (''LOWER ABDOMEN''), Diabetes (NIDDM), Gastritis, HTN, Hypercholesterolemia, Hyperthyroidism, Kidney Stones, Pancreatitis Surgical History: No Surg Hx - [facility] Procedures BYPASS L FEM ART TO L FEMOR A WITH AUTOL VN, OPEN APPROACH (03/14/16) CATARAC PHACOEMULS/ASPIR (07/23/14) CONTINUOUS INVASIVE MECHANICAL VENTILATION <96 CONSEC HRS (10/14/14) CONTRAST AORTOGRAM (09/16/14) CONTRAST ARTERIOGRAM-LEG (09/16/14) CORONAR ARTERIOGR-2 CATH (01/04/13) ENDOVASCULAR IMPLANTATION OF OTHER GRAFT IN ABDOMINAL AORTA (10/14/14) EXCISION OF LEFT FEMORAL VEIN, OPEN APPROACH (03/14/16) HEMORRHAGE CONTROL NOS (10/14/14) INSERT ENDOTRACHEAL TUBE (10/14/14) INSERT LENS AT CATAR EXT (07/23/14) LEFT HEART CARDIAC CATH (01/04/13) LT HEART ANGIOCARDIOGRAM (01/04/13) OTHER ENDOVASCULAR PROCEDURES ON OTHER VESSELS (10/30/14) PACKED CELL TRANSFUSION (10/30/14) PROCEDURE ON VESSEL BIFURCATION (10/14/14) REMOVE HEAD/NECK DEV NEC (10/14/14) TRANSFUSE NONAUT RED BLOOD CELLS IN PERIPH VEIN, PERC (03/14/16) VASC SHUNT & BYPASS NEC (10/30/14) VENOUS CATHETERIZATION NEC (10/14/14) Family History: States: No Known Family Hx - Social History Hx Tobacco Use: No (quit one year ago. Formerly 1/2 ppd for 20 years. ) Hx Alcohol Use: Yes (socially) Hx Substance Use: No - Immunization History Hx Tetanus Toxoid Vaccination: Yes Hx Influenza Vaccination: Yes Hx Pneumococcal Vaccination: Yes Review Of Systems Except As Marked, All Systems Reviewed And Found Negative. Constitutional: Negative for: Fever, Chills Cardiovascular: Negative for: Chest Pain Respiratory: Negative for: Shortness of Breath Genitourinary: Positive for: Other (testicular pain). Negative for: Dysuria, Frequency, Hematuria, Scrotal Pain Musculoskeletal: Positive for: Leg Pain (left leg pain; left calf swelling) Neurological: Negative for: Weakness, Numbness Physical Exam - Physical Exam Appears: Non-toxic, No Acute Distress Skin: Normal Color Head: Atraumatic, Normacephalic Eye(s): bilateral: Normal Inspection Neck: Normal ROM, Supple Chest: Symmetrical Cardiovascular: Rhythm Regular Respiratory: Normal Breath Sounds Gastrointestinal/Abdominal: Normal Exam, Soft Male Genital: Normal Inspection, No Testicular Tenderness, No Testicular Swelling Extremity: Normal ROM (FROM bilateral extremities), No Calf Tenderness, No Swelling, Other (well healed surgical scar to left medial leg) Neurological/Psych: Oriented x3 ED Course And Treatment - Laboratory Results Lab Results: Urine Color Yellow (YELLOW) 06/01/18 15:00 Urine Clarity Clear (Clear) 06/01/18 15:00 Urine pH 5.0 (5.0-8.0) 06/01/18 15:00 Ur Specific [place] 1.025 (1.003-1.030) 06/01/18 15:00 Urine Protein 1+ mg/dL (NEGATIVE) H 06/01/18 15:00 Urine Glucose (UA) Normal mg/dL (Normal) 06/01/18 15:00 Urine Ketones Negative mg/dL (NEGATIVE) 06/01/18 15:00 Urine Blood 2+ (NEGATIVE) H 06/01/18 15:00 Urine Nitrate Negative (NEGATIVE) 06/01/18 15:00 Urine Bilirubin Negative (NEGATIVE) 06/01/18 15:00 Urine Urobilinogen 2.0 mg/dL (0.2-1.0) 06/01/18 15:00 Ur Leukocyte Esterase Neg [place]/uL (Negative) 06/01/18 15:00 Urine WBC (Auto) 1 /hpf (0-5) 06/01/18 15:00 Urine RBC (Auto) 17 /hpf (0-3) H 06/01/18 15:00 Ur Squamous Epith Cells < 1 /hpf (0-5) 06/01/18 15:00 Hyaline Casts 3-5 /lpf (0-2) H 06/01/18 15:00 O2 Sat by Pulse Oximetry: 100 (RA) Pulse Ox Interpretation: Normal Medical Decision Making Medical Decision Makinyo male with testicular pain, left calf pain Plan: -- US doppler LLE -- US Testicular -- Urinalysis 1710 UA reviewed and unremarkable; no acute findings on US studies. Patient stable for discharge home. Disposition - Disposition Referrals: Juan A Waller, [Non-Staff] - Disposition: HOME/ ROUTINE Disposition Time: 16:35 Condition: GOOD Additional Instructions: CIELO LARA, thank you for letting us take care of you today. The emergency medical care you received today was directed at your acute symptoms. If you were prescribed any medication, please fill it and take as directed. It may take several days for your symptoms to resolve. Return to the Emergency Department if your symptoms worsen, do not improve, or if you have any other problems. Please contact your doctor or call one of the physicians/clinics you have been referred to that are listed on the Patient Visit Information form that is included in your discharge packet. Bring any paperwork you were given at discharge with you along with any medications you are taking to your follow up visit. Our treatment cannot replace ongoing medical care by a primary care provider outside of the emergency department. Thank you for allowing the [facility] team to be part of your care today. Follow up with your primary care doctor in 3-5 days for re-evaluation and further management. Instructions: How to Perform a Testicular Self-Exam Forms: [employer] ([place]) - Clinical Impression Clinical Impression: Spermatocele - Scribe Statement The provider has reviewed the documentation as recorded by the Baudilio Preciado Provider Attestation: All medical record entries made by the Scribe were at my direction and personally dictated by me. I have reviewed the chart and agree that the record accurately reflects my personal performance of the history, physical exam, medical decision making, and the department course for this patient. I have also personally directed, reviewed, and agree with the discharge instructions and disposition.
--- NOTE | 2018-06-04 09:25 | VASCLAB ---
Date of service: 06/01/2018 PROCEDURE: Left Lower Extremity Venous Duplex Exam. HISTORY: left calf pain r/o DVT PRIORS: None. TECHNIQUE: Left common femoral, femoral, popliteal and posterior tibial, peroneal and great saphenous veins were evaluated. Flow was assessed with color Doppler, compressibility, assessment of phasic flow and augmentation response. Report prepared by MERRY Trimble, RVT FINDINGS: LEFT: 1. Common Femoral Vein: 1.1. Compressibility - Fully compressible: Thrombus - None : Flow - Phasic: Augmentation -Normal: Reflux - None. 2. Femoral Vein: 2.1. Compressibility - Fully compressible: Thrombus - None: Flow - Phasic: Augmentation -Normal: Reflux - None. 3. Popliteal Vein: 3.1. Compressibility - Fully compressible: Thrombus - None: Flow - Phasic: Augmentation -Normal: Reflux - None. 4. Posterior Tibial Vein: 4.1. Compressibility - Fully compressible: Thrombus - None: Flow - Phasic: Augmentation -Normal: Reflux - None. 5. Peroneal Vein: 5.1. Compressibility - Fully compressible: Thrombus - None: Flow - Phasic: Augmentation -Normal: Reflux - None. 6. Great Saphenous Vein: 6.1. Compressibility - : Thrombus - : Flow - : Augmentation - : Reflux - . OTHER FINDINGS: The left greater saphenous vein was previously removed. IMPRESSION: No evidence of deep or superficial vein thrombosis of the left lower extremity with excellent venous flow. Normal valve function noted of the left side. Normal venous flow noted in the right common femoral vein.
== END 2018-06-01 17:10 | disposition home or self-care (01) ==
LOC: C.ER 13:53
DX: N43.40 Spermatocele of epididymis, unspecified (principal)